=== PATIENT | male | born 1965 | race Caucasian/White ===

== ENCOUNTER → 2024-09-06 14:55 | Outpatient (REF) | payer BC, SELFPAY | LOC: DHVS 14:55 | PROVIDERS: ATTENDING PHYSICIAN Surgery Vascular Surgery | DX: N18.6 End stage renal disease (principal); Z99.2 Dependence on renal dialysis | CPT/HCPCS: 93985 ==

== ENCOUNTER 2024-10-14 06:02 | Day surgery (SDC) | payer BC, SELFPAY ==
[2024-10-14] VITALS (10 sets, daily range): BP systolic 99–170; BP diastolic 45–91
[2024-10-14] MEDS: BACTROBAN NASAL 1 GRAM NASAL (06:54)
[2024-10-14] MEDS: PERIDEX 0.12% ORAL RINSE 15 ML PO (06:54)
[2024-10-14 07:01] LABS: Glucose - Point of Care 91 mg/dl (70-99)
[2024-10-14 07:04] LABS: Hematocrit 33.4 % (39.0-52.0); Hemoglobin 11.4 g/dL (13.0-18.0); Mean Corp Hgb Conc. 34.1 g/dL (33.0-37.0); Mean Corpuscular Volume 90.8 fL (80.0-94.0); Mean Platelet Volume 10.3 fL (7.4-10.4); Platelet Count 132 10^3/uL (130-400); Red Blood Cell Count 3.68 10^6/uL (4.70-6.10); White Blood Cell Count 5.9 10^3/uL (4.8-10.8)
--- NOTE | 2024-10-14 07:06 | HP.FOC2 ---
Focused History & Physical
Chief Complaint
HPI:
Chief Complaint: Planned AV fistula creation status post failed fistula
HPI / Indication for Planned Procedure: 59-year-old male here for planned AV fistula creation by Dr. Alicia. Patient had baseline health. No changes in medications or medical history since last visit to our office. Patient wishes to proceed with
planned procedure today.
Relevant Past Medical History: Other (Hyperlipidemia, hypertension, kidney disease)
Relevant Social History: Negative
Relevant Family History: Positive for (Breast cancer)
Relevant Past Surgical History: Positive for (Fistula creation)
Medication
See Medication form for detailed medications: Yes
Medication List (including Herbals & OTC):
atorvastatin 80 mg tablet (Lipitor) 80 mg PO DAILY 09/10/24
carvedilol 25 mg tablet 25 mg PO BID 09/10/24
cinacalcet 60 mg tablet 60 mg PO DAILY 09/10/24
sevelamer HCl 800 mg tablet 800 mg PO TID 09/10/24
torsemide 100 mg tablet 100 mg PO DAILY 09/10/24
valsartan 320 mg tablet 320 mg PO DAILY 09/10/24
vitamin B complex-vitamin C-folic acid 0.8 mg tablet (Dialyvite 800) 1 tab PO DAILY 09/10/24
Medications Reviewed: Yes
Allergies and Reactions
Patient has Allergies: Yes
Noted Allergies and Reactions:
Allergy/AdvReac Type Severity Reaction Status Date / Time
No Known Allergies Allergy Verified 10/14/24 06:26
Pertinent Physical Exam
All Other Systems: Negative
Head/Neck: Normal
Lungs: Normal
Heart: Normal
Abdomen: Normal
Extremities: Normal
Neurological: Normal
Other: +2 palpable radial pulses right hand
Diagnosis / Assessment
End-stage renal disease
Plan / Procedure
Patient here for planned fistula creation with Dr. Alicia
Anesthesia/Sedation to be done by Anesthesia Provider: Yes
--- NOTE | 2024-10-14 07:06 | W.SUR.PREOP ---
Pre-Operative Surgical Note
-
I have examined this patient prior to the performance of the scheduled procedure.
The patient's condition is unchanged from the time of the current History and
Physical and the patient is able to undergo the scheduled procedure.
[2024-10-14 07:17] LABS: INR 1.06; PT 14.1 Sec (11.4-14.6)
[2024-10-14 07:18] LABS: APTT 28.8 Sec (23.4-35.0)
[2024-10-14 07:42] LABS: Blood Urea Nitrogen 70 mg/dl (9-20); Calcium 7.7 mg/dl (8.4-10.2); Carbon Dioxide 24 mmol/L (22-30); Chloride 101 mmol/L (98-107); Estimated Creatinine Clearance 14 ml/min; Glucose 100 mg/dl (70-99); Potassium 4.4 mmol/L (3.5-5.1); Sodium 139 mmol/L (135-145); eGFR 6.65
--- NOTE | 2024-10-14 09:14 | W.SUR.POST ---
Surgical Immediate Post Op
Note
Pre Op Diagnosis: End-stage renal disease
Post Op Diagnosis: Same
Procedure Performed: Right upper extremity brachiocephalic AV fistula creation
Primary Surgeon: Ravin
Assist: Alexys KOEHLER
Anesthesia: LMA
Estimated Blood Loss: 5cc
Fluids: See anesthesia flowsheet
Drains/Shunts: None
Specimens/Cultures: None
Doppler/Duplex/Angio (Y/N): Y
Complications: None
Operative Findings: Palpable thrill, palpable radial pulse
[2024-10-14 09:49] LABS: Glucose - Point of Care 112 mg/dl (70-99)
--- NOTE | 2024-10-14 11:22 | OR.RPT ---
Operative Report
Operative Report
PROCEDURE DATE: 10/14/2024
Preoperative diagnosis: End-stage renal disease on hemodialysis
Postoperative diagnosis: Same
Procedure: Right upper extremity brachiocephalic arteriovenous fistula creation
Surgeon: Ravin
Group Home Paraprofessional: NIELS Reardon, required for all aspects of procedure including assistance with traction/countertraction, following of suture line, assistance with closure.
Complications: None
Anesthesia: General
Indications for procedure:
History of prior to my meeting him left upper extremity AV access with steal, revision, thrombosis. Now requiring new access placement. Risk/benefit/alternatives all fully discussed. Patient understood all wished to proceed.
Planned right upper extremity AV fistula creation.
Description of procedure:
Patient was identified brought to the operating room placed on the table in supine position. After induction of anesthesia, upper arm cephalic vein was mapped with the ultrasound and noted to be very reasonable and actually large in size. After
the adequate administration of anesthesia and perioperative antibiotics he was prepped and draped in the standard surgical fashion. A standard preoperative timeout was undertaken and everybody was in agreement the plan. A transverse incision was
made in the proximal volar aspect of the forearm just distal to the antecubital fossa. This was carried through skin subcutaneous tissue. The cephalic vein was identified and carefully dissected away from surrounding structures and great care to
avoid any injury to structures. Any branches were ligated between silk ties and divided. The vein was noted to be fairly large. I therefore dissected it beyond a confluence following the main vein which tapered slightly and I felt that that would
be a better point of vein to use for the anastomosis since it was slightly more tapered compared to the larger main cephalic outflow. As such I was able to mobilize a suitable length of cephalic vein. Once I done this I then deepened my
dissection in the medial aspect of the incision site through the fascial layer. The brachial artery was carefully identified and carefully dissected away from surrounding structures take great care to avoid injury to structures. I passed a vessel
loop around it proximally and distally. Next I gave the patient 4000 units of intravenous heparin. I then ligated the cephalic vein distally in my field with a silk tie and a clip. I then transected it. I distended under heparinized saline. It
distended very well. I marked the anterior surface under distention to avoid any kinking or twisting. The vein was very suitably sized but just to be sure I ran a 3 mm dilator through which passed without any difficulty whatsoever. Next I
tightened my double looped Vesseloops on the artery proximally and distally. I then made an arteriotomy with 11 blade extended using a Bronson scissor. I made sure to make a relatively small arteriotomy in order to prevent steal. I spatulated the
cephalic vein where it slightly tapered, and sewed an end to side anastomosis using a running 6-0 Prolene suture. Prior to completing and tying down my suture line I backbled and forebled the [place] artery. Next I released my bulldog clamp on the
vein and then released my Vesseloops on the artery. There was an excellent thrill in the fistula. There was palpable radial pulse at the wrist, confirmed with Doppler. At this point I was very satisfied. I irrigated. I achieved and confirmed
full hemostasis. We then closed in layers using 3-0 Vicryl deep dermal layer followed by 4-0 Monocryl subcuticular stitch. Dermabond was applied. The patient tolerated the procedure well.
== END 2024-10-14 11:28 | disposition home or self-care (01) ==
LOC: CATH 06:02
PROVIDERS: ATTENDING PHYSICIAN Surgery Vascular Surgery; FAMILY PHYSICIAN Nurse Practitioner Family; OTHER PHYSICIAN Internal Medicine Cardiovascular Disease
DX: I12.0 Hypertensive chronic kidney disease with stage 5 chronic kidney disease or end stage renal disease (principal); N18.6 End stage renal disease; Z99.2 Dependence on renal dialysis; E78.49 Other hyperlipidemia; I45.10 Unspecified right bundle-branch block; Z80.3 Family history of malignant neoplasm of breast
CPT/HCPCS: 36821; 80048; 82962; 85027; 85610; 85730; 86850; 86900; 86901; 93005

== ENCOUNTER → 2024-11-26 10:12 | Outpatient (REF) | payer BC, SELFPAY | LOC: RAD 10:12 | PROVIDERS: ATTENDING PHYSICIAN Registered Nurse; FAMILY PHYSICIAN Nurse Practitioner Family | DX: L98.8 Other specified disorders of the skin and subcutaneous tissue (principal) | CPT/HCPCS: 93990 ==

== ENCOUNTER 2025-02-17 06:41 | Inpatient (IN) | payer BC, SELFPAY ==
[2025-02-17] VITALS (27 sets, daily range): BP systolic 96–138; BP diastolic 55–98; BMI 42.5; BMI 41.3
[2025-02-17 05:06] LABS: % Basophils 0.7 % (0-2); % Eosinophils 4.5 % (0-6); % Immature Granulocytes 0.1 % (0-0.5); % Lymphocytes 19.9 % (20.5-51.1); % Monocytes 10.9 % (1.7-9.3); % Neutrophils 63.9 % (42.2-75.2); Absolute Basophils 0.1 10^3/uL (0-0.2); Absolute Eosinophils 0.3 10^3/uL (0-0.7); Absolute Lymphocytes 1.5 10^3/uL (1.2-3.4); Absolute Monocytes 0.8 10^3/uL (0.1-0.6); Absolute Neutrophils 4.8 10^3/uL (1.4-6.5); Hematocrit 28.8 % (39.0-52.0); Hemoglobin 9.9 g/dL (13.0-18.0); Mean Corp Hgb Conc. 34.4 g/dL (33.0-37.0); Mean Corpuscular Hgb 31.1 pg (27.0-31.0); Mean Corpuscular Volume 90.6 fL (80.0-94.0); Mean Platelet Volume 10.1 fL (7.4-10.4); Nucleated Red Blood Cells % 0 % (-); Platelet Count 145 10^3/uL (130-400); Red Blood Cell Count 3.18 10^6/uL (4.70-6.10); Red Cell Dist. Width 13.4 % (11.5-14.5); White Blood Cell Count 7.5 10^3/uL (4.8-10.8)
--- NOTE | 2025-02-17 05:06 | ED.GENMED ---
History of Present Illness
General
Chief Complaint: Breathing Problem
Source: patient and family
Exam Limitations: none
Time Seen by Provider: 02/17/25 04:10
History of Present Illness
History of Present Illness:
59-year-old male brought in with shortness of breath. Patient was diagnosed with pneumonia about 2 weeks ago via CAT scan by his primary care provider. Tonight he reports increased work of breathing. Denies fever, chills, nausea or vomiting.
Patient has dialysis at [facility] in [facility] every Monday and Monday. He is due for dialysis this morning. He states that he is concerned about going down to dialysis with his current shortness of breath. Patient is diet-controlled
diabetes. He has 2 fistulas 1 in the left and 1 in the right arm. The left fistula has failed and not used.
Vital signs are stable. Patient hypoxic on room air
Nursing note reviewed. I agree with nursing documentation up to this point in time.
Home Meds and allergies reviewed.
NUMBER AND COMPLEXITY OF PROBLEMS ADDRESSED AT THE ENCOUNTER
� Chronic conditions affecting care:
� Acute Exacerbation and/or Progression of Chronic Illness:
� Differential Diagnosis includes: CHF exacerbation, WA, dependent edema
AMOUNT AND/OR COMPLEXITY OF DATA TO BE REVIEWED AND ANALYZED
I performed an independent evaluation of the following and my interpretation is:
EKG: Sinus rhythm rate of 75 first-degree AV block with UT interval 246 ms. Incomplete right bundle branch block present. LVH present. When compared with previous EKG dated October 14, 2024, similar morphology noted.
Pulse Ox: Hypoxic on room air. Oxygen saturation improved and is not him hypoxic on 2 L nasal cannula
Shop Repairer: Sinus Rhythm
CT:
X-rays: Pulmonary vascular congestion
Ultrasound:
Laboratory Studies: Elevated troponin, and proBNP
Other:
Review of other/old records: AV fistula placement 10/14/2024
Clinical information was obtained by an independent historian:
Prescriptions/Medications Considered but not given:
Further testing considered but not performed:
RISK OF COMPLICATIONS AND/OR MORBIDITY OR MORTALITY OF PATIENT MANAGEMENT
Social determinants of health affecting care: Good Social Support
Discussion with other providers:
Escalation of care including admission/observation vs risk of discharge considered: After being observed in the emergency department, patient is not stable for discharge and will be admitted to the hospitalist service
nephrology aware.
Update:
Review of Systems
Review of Systems
Allergies reviewed?: Yes
All Other Systems: ROS reviewed and negative except as documented in HPI and ROS
Constitutional: Reports no symptoms
EENT: Reports no symptoms
Respiratory: Reports cough and trouble breathing
Cardiac: Reports no symptoms
ABD/GI: Reports no symptoms
: Reports no symptoms
Musculoskeletal: Reports no symptoms
Skin: Reports no symptoms
Neurological: Reports no symptoms
Endocrine: Reports no symptoms
Hematologic/Lymphatic: Reports no symptoms
Psychiatric: Reports no symptoms
Phy Exam
General Physical Exam
General Presentation: well appearing and mild distress
General age: appears older than age
General Skin: warm and dry
General Habitus: normal
General Mental: alert
General Hydration: appears well hydrated
ENT Exam
ENT Exam: EOMI, pharynx normal, neck supple and normocephalic
Eye Exam
Eye Exam: PERRL, cornea clear and conjunctiva normal
Cardiovascular Exam
Cardiovascular Exam: regular rate/rhythm, no murmur, normal peripheral pulses and systolic murmur
Systolic Murmur: 4/6 (Patient states that this murmur is fairly new. It was detected by another physician recently)
Pulmonary Exam
Pulmonary Exam: respiratory distress
Cough: coarse cough
Breath Sounds: Rhonchi: generalized
Gastrointestinal Exam
Gastrointestinal Exam: normal bowel sounds, non tender, soft, no organomegaly, no pulsatile mass and non distended
Neurological Exam
Neurological Exam: alert, oriented x3, no motor deficits and speech normal
Musculoskeletal Exam
Musculoskeletal Exam: edema and neuro vasc intact
Skin Exam
Skin Exam: other (Bilateral AV fistula)
Psychiatric Exam
Psychiatric Exam: normal mood/affect
Scores
Heart Failure Risk
Heart Failure Risk Score: Yes
History of Stroke or TIA: Yes
History of intubation for respiratory distress: No
Heart rate on ED arrival >/= 110: No
SaO2 <90% on arrival on room air: Yes
HR >/=110 during 3min walk test (or too ill to perform test): Yes
ECG has acute ischemic changes: No
Urea >/=12mmol/L (BUN 33.6mg/dL): Yes
Serum CO2>/=35mmol/L: No
Troponin I or T elevated to WA Level (0.4mg/dL): No
NT-proBNP >/=5,000ng/L (5,000pg/ml): Yes
HF Risk Score: 6
Admission Status: VERY HIGH RISK 55.3% Consider admission to hospital
Course
Orders/Labs/Results
Orders:
Orders
02/17/25 03:31
Chest [CR Chest - 2 Views ] Urgent
Comment:
Reason For Exam: SOB
02/17/25 04:44
Complete Blood Count/With Diff Urgent
Comprehensive Metabolic Panel Urgent
02/17/25 04:55
EKG [Electrocardiogram (*1)] Urgent
Reason for Study: Shortness of Breath
EKG- Treatment ONCE
02/17/25 04:56
NT-proBNP Urgent
Troponin I Urgent
02/17/25 05:43
Furosemide [Lasix] 80 mg IV NOW STA
Abnormal Lab Results
02/17/25 02/17/25
04:44 04:56
RBC 3.18 L 10^6/uL
(4.70-6.10)
Hgb 9.9 L g/dL
(13.0-18.0)
Hct 28.8 L %
(39.0-52.0)
MCH 31.1 H pg
(27.0-31.0)
Absolute Monos (auto) 0.8 H 10^3/uL
(0.1-0.6)
Lymphocytes % 19.9 L %
(20.5-51.1)
Monocytes % 10.9 H %
(1.7-9.3)
BUN 53 H mg/dl
(9-20)
Creatinine 9.9 H* mg/dL
(0.7-1.3)
Glucose 117 H mg/dl
(70-99)
Troponin I 0.184 H* ng/ml
02/17/25 04:44
02/17/25 04:44
Vital Signs
Initial and Last Documented VS:
Initial Vital Signs
Temp Pulse Resp BP
97.6 F 78 22 138/98
02/17/25 03:24 02/17/25 03:24 02/17/25 03:24 02/17/25 03:24
Last Documented Vital Signs
Temp Pulse Resp BP Pulse Ox
97.6 F 75 27 134/77 91
02/17/25 03:24 02/17/25 05:30 02/17/25 05:30 02/17/25 05:10 02/17/25 05:30
*Radiology
Radiology exam reviewed: preliminary read by ED provider (Pulmonary vascular congestion consistent with CHF)
*Pulse Oximetry
Patient hypoxic: no
*Critical Care Note
Total Time (30-74mins, 75-104mins- exclusive of procedures): 33 (Critical care statement: A total of 33 minutes of critical care time was provided for this patient. This time is separate from time utilized to perform the aforementioned documented
procedures. Aggregate critical care time includes only time during which I was engaged in work directl)
ED Attending Note
-
Portions of this chart may have been created with voice recognition software.� Occasional wrong word or��sound alike� substitutions may have occurred due to the inherent limitations of voice recognition software.
Discharge Plan
Departure
Patient Disposition: Admit
Date of Disposition: 02/17/25
Time of Disposition: 05:49
Admit to: IVU
Presentation/result/management discussed w/ accepting MD/DO: Hospitalist
Condition: Fair
Discharge Problem:
Acute exacerbation of CHF (congestive heart failure), Renal failure, Increasing shortness of breath
Prescriptions:
No Action
atorvastatin [Lipitor] 80 mg Tablet
80 mg PO DAILY
carvedilol 25 mg Tablet
25 mg PO BID
sevelamer HCl 800 mg Tablet
800 mg PO TID
torsemide 100 mg Tablet
100 mg PO DAILY
valsartan 320 mg Tablet
320 mg PO DAILY
cinacalcet 60 mg Tablet
60 mg PO DAILY
Dialyvite 800 0.8 mg Tablet
1 tab PO DAILY
Referrals:
Homar Mann MD [Family Provider] -
Interventions
Interventions:
*Risk Screen - Suicide Last Done: 02/17/25 03:24
*General Assessment Last Done: 02/17/25 04:43
*Neglect/Abuse Screening Last Done: 02/17/25 03:24
*ED- Fall Risk Assessment Last Done: 02/17/25 04:43
*ED COVID-19 Vaccine History Last Done: 02/17/25 04:43
ED- Cardiac Assessment Last Done: 02/17/25 05:22
ED- Pulmonary Assessment Last Done: 02/17/25 05:22
Discharge Date and Time
Print Language: THAI
[2025-02-17 05:25] LABS: ALT (SGPT) 15 U/L (0-50); AST (SGOT) 24 U/L (17-59); Alkaline Phosphatase 57 U/L (38-126); Blood Urea Nitrogen 53 mg/dl (9-20); Calcium 9.8 mg/dl (8.4-10.2); Carbon Dioxide 24 mmol/L (22-30); Chloride 102 mmol/L (98-107); Estimated Creatinine Clearance 12 ml/min; Glucose 117 mg/dl (70-99); Potassium 3.9 mmol/L (3.5-5.1); Sodium 138 mmol/L (135-145); Total Protein 7.4 g/dl (6.3-8.2); eGFR 5.54
[2025-02-17 05:38] LABS: NT-proBNP > 27000 pg/ml; Troponin I 0.184 ng/ml
[2025-02-17] MEDS: LASIX 80 MG IV (06:08)
--- NOTE | 2025-02-17 06:08 | HPS.HSE ---
Family Physician
-
Family Physician: Homar Mann MD
Chief Complaint
-
Shortness of breath
History of Present Illness
59 y.o male with history of end-stage renal disease on hemodialysis Monday, no history of congestive heart failure in 2017, hypertension, hyperlipidemia presenting to the emergency department with approximately 1 day of shortness of
breath.
Patient reported that about 2 weeks ago was diagnosed with pneumonia. At a time had a cough and some shortness of breath. He completed a course of antibiotics. He still has a cough which is now nonproductive. He denies any fevers or chills. He
reported that he did feel better until today when he had severe shortness of breath and dyspnea on exertion. He missed his dialysis session on Monday. His last dialysis session was Monday 5 days ago. He usually has about 2.4 kg removed with
the session. Recently has right upper extremity AV fistula placed after failure of the right wrist left. He has been using the fistula for about a month. He still has a dialysis permacath in the right IJ.
Patient denies having any chest pain. He denies palpitations.
In the emergency department he was afebrile, he was satting 88% on room air and 92 to 95% on 2 L. Blood pressure was 134/77, pulse rate was 75. ECG shows normal sinus rhythm with 4 degree AV block and incomplete right bundle no acute to ST
changes. Unchanged from prior. Chest x-ray shows bilateral interstitial infiltrates consistent with pulmonary edema. CBC was unremarkable with a white count of 7.5, hemoglobin of 9 and a plate count 145. Electrolytes were stable with a potassium
of 3.9 and a bicarb of 24. Troponin was 0.1 and BNP was greater than 27,000.
Medical History
Past Medical History
Past Medical History: Reports HTN, Hypercholesterolemia and Renal Failure (On hemodialysis Monday)
Past Surgical History: Reports Other (AV fistula placement)
Social History
Tobacco: Non-smoker
Alcohol: None
Drug: None
Family History
Family History: Not pertinent
Allergies / Home Medications
Allergies reflects when Allergies were last updated in [facility].
Home Medications with original date entered in [facility]
Allergy/Medication List:
Allergies
Allergy/AdvReac Type Severity Reaction Status Date / Time
No Known Allergies Allergy Verified 02/17/25 03:29
Home Medications
atorvastatin 80 mg tablet (Lipitor) 80 mg PO DAILY 09/10/24
carvedilol 25 mg tablet 25 mg PO BID 09/10/24
cinacalcet 60 mg tablet 60 mg PO DAILY 09/10/24
sevelamer HCl 800 mg tablet 800 mg PO TID 09/10/24
torsemide 100 mg tablet 100 mg PO DAILY 09/10/24
valsartan 320 mg tablet 320 mg PO DAILY 09/10/24
vitamin B complex-vitamin C-folic acid 0.8 mg tablet (Dialyvite 800) 1 tab PO DAILY 09/10/24
Review of Systems
-
History Source: Patient
Constitutional: Reports No Symptoms
EENT: Reports No Symptoms
Respiratory: Reports Cough and Trouble Breathing
Cardiac: Reports No Symptoms
Abdomen/GI: Reports No Symptoms
: Reports No Symptoms
Musculoskeletal: Reports No Symptoms
Skin: Reports No Symptoms
Neurological: Reports No Symptoms
Endocrine: Reports No Symptoms
Hematologic/Lymphatic: Reports No Symptoms
Psych: Reports No Symptoms
Physical Exam
Vital Signs
Vital Signs
Temp Pulse Resp BP Pulse Ox
97.6 F 74 24 138/93 93
02/17/25 03:24 02/17/25 06:00 02/17/25 06:00 02/17/25 06:00 02/17/25 06:00
Physical Exam
General: Well Developed, Well Nourished, No Apparent Distress and Comfortable
HEENT: NormoCephalic, Anicteric, Moist mucous membranes, Atraumatic, PERRLA and Oxygen
Respiratory: Crackles, Non Labored Respirations and Decreased Breath Sounds
Cardiac: S1/S2 and Regular Rhythm
Breast: Deferred by me
GI: Soft, Non Tender and Normal Bowel Sounds
Rectal: Deferred by Provider
Genito-urinary: Deferred by me
Musculoskeletal: No Clubbing, No Cyanosis, Edema, Right Upper Extremity, Edema, Left Lower Extremity (trace) and Edema, Right Lower Extremity (trace)
Skin: Warm
Neuro: AO x 3 and Nonfocal/grossly intact
Hematologic/Lymphatic: No Lymphadenopathy
Psych: Calm
Laboratory Results
-
02/17/25 04:44
02/17/25 04:44
Laboratory Results
Total Bilirubin 1.0 mg/dl (0.2-1.3) 02/17/25 04:44
AST 24 U/L (17-59) 02/17/25 04:44
ALT 15 U/L (0-50) 02/17/25 04:44
Alkaline Phosphatase 57 U/L (38-126) 02/17/25 04:44
Troponin I 0.184 ng/ml H* 02/17/25 04:56
Data Reviewed
-
Diagnostic Radiology: Image Personally Visualized and interpreted
Medical Tests (Nuc Med, Echo, EKG etc): Image Personally Visualized and interpreted
Lab Data: Labs Reviewed by me
Old Records: Reviewed
Impression/Plan
-
IMPRESSION:
59 y.o w/ h/o CHF, HTN, ESRD on HD M/W/F presenting with SOB and hypoxia. Missed HD on monday. Xray with pulmonary edema. He has non-pitting edema in [place] and RUE. BNP > 67779. Trop also elevated to 0.1. No chest pain. No ischemia on ECG.
Suspect CHF exacerbation secondary to volume overload. He still makes urine on torsemide.
PLAN:
CHF Exacerbation - Suspect mostly secondary to volume overload from missed dialysis and large interdialytic weight gain. Trop elevated but can be seen with severe volume O/D. No CP or ischemia on ECG. He has no signs of acute infection.
- admit to telemetry for now
- oxygenating well on 2 L with minimal increase in wob
- BP is normal, will hold off nitroglycerin for now
- attempt diuresis with lasix 80mg iv
- urgent hemodialysis for u/f -> nephrology notified from ED
- fluid and salt restrictions
- echo
- aspirin x 1, continue carvedilol, statin
- cardiology consultation
Trop elevation - suspect from CHF exacerbation and esrd but cannot rule out nstemi. No chest pain. No h/o CAD.
- assa 324 x 1
- trend troponins
- diuresis and dialysis as above
- echo
- ntg prn cp
- cardiology consult
ESRD - Vol O/D from missed dialysis suspectec. K 3.9. bicarb 24
- nephrology consult for HD, has permcath in R IJ and a functional RUE AVF with good thrill and bruit
- has RUE swelling since fistula placement, outpatient u/s negative, plan to remove permcath by outpatient HD to help relieve swelling
- continue sevalamer cincalcet and dialyvite
- continue valsartan and torsemide
DVT PPX - heparin sq
Code status - Full code
[2025-02-17] MEDS: LOW STRENGTH ASPIRIN 324 MG PO (06:41)
[2025-02-17] MEDS: RENVELA 800 MG PO ×3 (08:19→17:30)
[2025-02-17] MEDS: HEPARIN 5000 UNITS SC ×3 (08:19→23:36)
[2025-02-17] MEDS: LIPITOR 80 MG PO (08:19)
[2025-02-17] MEDS: DIOVAN 320 MG PO (08:19)
[2025-02-17] MEDS: COREG 25 MG PO ×2 (08:19→19:38)
[2025-02-17] MEDS: NEPHROCAP 1 CAPSULE PO (08:20)
[2025-02-17] MEDS: SENSIPAR 60 MG PO (08:20)
--- NOTE | 2025-02-17 09:14 | CON.CAR ---
Addendum entered and electronically signed by Moses Mckinney MD 02/17/25 10:14:
59 yo male with chronic HFPEF, ESRD on HD is admitted with SOB, edema. He missed HD on Monday. No chest pain. Exam with RRR, no murmurs, 1+ LE edema. TnI 0.184. Cr 9.9. Tele: SR. EKG: SR, 1st degree AVB.
Volume overload in setting of acute HFPEF and missed HD. Resume HD/UF.
Elevated troponin. Suspect acute non-ischemic myocardial injury in setting of HF, renal failure. Check echo.
Original Note:
Consultation
Consultation Request
Date/Time Consultation Requested: 02/17/2025 07:20
Date/Time Consultation Performed: 02/17/2025 08:45
Requesting Provider: Dr. Moe
Performing Provider: RODO Zheng for Dr. Mckinney
Reason for Consultation: Heart failure exacerbation
Medical History
-
Chief Complaint: Shortness of breath
History of Present Illness:
Michel Kendrick is a 59-year-old male (known to Dr. Rios, his primary material analyst), with ESRD on HD, heart failure, hypertension, dyslipidemia, NIDDM, and obesity who presented to the emergency department with a chief complaint of shortness of
breath. He normally receives hemodialysis on Monday/Monday/Monday via right PermCath. He had an AV fistula placed in his right upper extremity does have large but he has had swelling so the fistula is not currently being used. He missed
hemodialysis on Monday. He presented with shortness of breath. This has been ongoing for approximately 1 day. Approximately 2 weeks ago he had a CT scan which demonstrated pneumonia. At that time he had a cough and some shortness of breath. He
completed prescribed antibiotics. Over the past day he has a moist nonproductive cough. He endorses severe shortness of breath that worsens with exertion. And improves with rest. He believes his dry weight to be about 140 kg. He was found to
have an abnormal troponin, proBNP greater than 27,000, and a chest x-ray with an increase in his pulmonary vasculature. At the time of this exam he denies chest pain. His right arm edema is chronic and unchanged.
Past Medical History
Past Medical History: CHF, HTN, Hypercholesterolemia, NIDDM and Renal Failure (ESRD on HD)
Social History
Tobacco: Non-Smoker
Alcohol: None
Personal:
Living: With Family
Family History
Family History: Reviewed & Not Pertinent
Allergies / Home Medications
Allergy/AdvReac Type Severity Reaction Status Date / Time
No Known Allergies Allergy Verified 02/17/25 03:29
�Medication �Instructions �Recorded �Confirmed �Type
atorvastatin 80 mg tablet (Lipitor) 80 mg PO DAILY 09/10/24 10/14/24 History
carvedilol 25 mg tablet 25 mg PO BID 09/10/24 10/14/24 History
cinacalcet 60 mg tablet 60 mg PO DAILY 09/10/24 10/14/24 History
sevelamer HCl 800 mg tablet 800 mg PO TID 09/10/24 10/14/24 History
torsemide 100 mg tablet 100 mg PO DAILY 09/10/24 10/14/24 History
valsartan 320 mg tablet 320 mg PO DAILY 09/10/24 10/14/24 History
vitamin B complex-vitamin C-folic 1 tab PO DAILY 09/10/24 10/14/24 History
acid 0.8 mg tablet (Dialyvite 800)
Review of Systems
-
History Source: Patient
All other systems: Negative unless noted
Constitutional: Weight Gain and Fatigue
EENT: No Symptoms
Respiratory: Cough and Trouble Breathing
Cardiac: No Symptoms
Abdomen/GI: No Symptoms
: No Symptoms
Musculoskeletal: Edema
Skin: No Symptoms
Neurological: No Symptoms
Endocrine: No Symptoms
Hematologic/Lymphatic: No Symptoms
Physical Exam
Vital Signs
Temp Pulse Resp BP Pulse Ox
97.6 F 79 27 134/84 94
02/17/25 03:24 02/17/25 08:19 02/17/25 07:15 02/17/25 08:19 02/17/25 07:15
Lab Results
02/17/25 04:44
02/17/25 04:44
Troponin I 0.184 ng/ml H* 02/17/25 04:56
Ajq-X-Uzgkfcfhfnv Pept > 95215 pg/ml 02/17/25 04:56
Physical Exam
General: Well Developed, Well Nourished, No Apparent Distress and Comfortable
HEENT: Normocephalic, Anicteric and Moist Mucous Membranes
Respiratory: Non Labored Respirations and Other (coarse)
Cardiac: S1/S2, Regular Rhythm and Peripheral Edema
Breast: Deferred by me
GI: Soft, Non Tender, Non Distended and Normal Bowel Sounds
Rectal: Deferred by Provider
Genito-urinary: No Costovertebral Tender
Musculoskeletal: No Clubbing, No Cyanosis and Edema (B/L LE and RUE)
Skin: Warm and Dry
Neuro: AO x 3
Hematologic/Lymphatic: No Lymphadenopathy
Psych: Calm
Impression / Plan
-
I/P: 59M with ESRD on HD, heart failure, hypertension, dyslipidemia, NIDDM, and obesity who presented to the emergency department with a chief complaint of shortness of breath.
Outpatient material analyst: Dr. Rios
Shortness of breath, in the setting of volume overload, plan as below
HFpEF, acute on chronic
-Volume overloaded on exam
-Volume management with hemodialysis
-Trend daily weight, I/O with HD
-HF education
-Echocardiogram today
Abnormal troponin, nonischemic myocardial injury in the setting of acute heart failure and CKD
-Chest pain-free, EKG stable
-Trend to peak, Troponin I 0.184 x 2
ESRD on HD
-Last session of hemodialysis 02/12/2025, he missed 02/15/2025
-Nephrology following
AV fistula, right upper extremity, chronic swelling with some discoloration in his fingers, he reports this is unchanged
Hypertension, managed by nephrology
Incomplete right bundle branch block, present on prior EKG (10/14/2024)
NIDDM, Hgba1c pending, per primary
Dyslipidemia, on atorvastatin
Data Reviewed
-
EKG: Report Reviewed by me
Labs: Labs Reviewed by me
Old Records: Reviewed
[2025-02-17 09:26] LABS: Troponin I 0.184 ng/ml
--- NOTE | 2025-02-17 10:16 | W.CON.NEPH ---
Consultation
-
Date/Time Consultation Requested: 02/17/25722
Date/Time Consultation Performed: 02/17/25914
Requesting Provider: Leda Moe MD
Performing Provider: Loli Mcmullen
Reason for Consultation: ESRD
Medical History
-
Chief Complaint: SOB
History of Present Illness:
59 y.o male with history of end-stage renal disease on hemodialysis Monday, [facility] since 1.5yr, still residual urine out put on Torsemide, history of congestive heart failure in 2017, hypertension on Valsartan, coreg,
hyperlipidemia on high dose Atorvastatin, Hyperphosphatemia on Sevelamer, SHPTH on Sensipar presenting to the emergency department on 02/17 with approximately 1 day of shortness of breath.
Patient reported that about 2 weeks ago was diagnosed with pneumonia at [facility]. At a time had a cough and some shortness of breath. He completed a course of antibiotics. He still has a cough which is now nonproductive. He is very compliant wit
salt restriction or fluid restriction. He denies any fevers or chills. He reported that he did feel better until day ago when he had severe shortness of breath and dyspnea on exertion. He missed his dialysis session on Monday. His last dialysis
session was Monday 5 days ago. He usually has about 2.4 kg removed with the session, can not tolerate 4kg UF, [id number]. Recently has right upper extremity AV fistula placed after failure of the right wrist left. He has been using the fistula
for about a month. He still has a dialysis permacath in the right IJ and plan of removing soon with concern of arm edema.
Patient denies having any chest pain. He denies palpitations.
In the emergency department he was satting 88% on room air and 92 to 95% on 2 L. Chest x-ray shows bilateral interstitial infiltrates consistent with pulmonary edema. Troponin was 0.1 and BNP was greater than 27,000. Nephrology asked for HD needs.
Past Medical History
end-stage renal disease on hemodialysis Monday, [facility] since 1.5yr,
history of congestive heart failure in 2017,
hypertension
hyperlipidemia
Hyperphosphatemia
SHPTH
Past Surgical History: Other (AVF)
Social History
Tobacco: Non-Smoker
Alcohol: None
Drug: None
Personal:
Living: With Family
Family History
Family History: Not Pertinent
Allergies / Home Medications
Allergy/AdvReac Type Severity Reaction Status Date / Time
No Known Allergies Allergy Verified 02/17/25 03:29
�Medication �Instructions �Recorded �Confirmed �Type
atorvastatin 80 mg tablet (Lipitor) 80 mg PO DAILY 09/10/24 02/17/25 History
carvedilol 25 mg tablet 25 mg PO BID 09/10/24 02/17/25 History
cinacalcet 60 mg tablet 60 mg PO DAILY 09/10/24 02/17/25 History
sevelamer HCl 800 mg tablet 800 mg PO MEALS 09/10/24 02/17/25 History
torsemide 100 mg tablet 100 mg PO DAILY 09/10/24 02/17/25 History
valsartan 320 mg tablet 320 mg PO DAILY 09/10/24 02/17/25 History
vitamin B complex-vitamin C-folic 1 tab PO DAILY 09/10/24 02/17/25 History
acid 0.8 mg tablet (Dialyvite 800)
Review of Systems
-
All other systems: Negative unless noted
Physical Exam
Vital Signs
Vital Signs
Temp Pulse Resp BP Pulse Ox
97.6 F 79 27 134/84 94
02/17/25 03:24 02/17/25 08:19 02/17/25 07:15 02/17/25 08:19 02/17/25 07:15
Lab Results
WBC 7.5 10^3/uL (4.8-10.8) 02/17/25 04:44
RBC 3.18 10^6/uL (4.70-6.10) L 02/17/25 04:44
Hgb 9.9 g/dL (13.0-18.0) L 02/17/25 04:44
Hct 28.8 % (39.0-52.0) L 02/17/25 04:44
Plt Count 145 10^3/uL (130-400) 02/17/25 04:44
Sodium 138 mmol/L (135-145) 02/17/25 04:44
Potassium 3.9 mmol/L (3.5-5.1) 02/17/25 04:44
Chloride 102 mmol/L (98-107) 02/17/25 04:44
Carbon Dioxide 24 mmol/L (22-30) 02/17/25 04:44
BUN 53 mg/dl (9-20) H 02/17/25 04:44
Creatinine 9.9 mg/dL (0.7-1.3) H* 02/17/25 04:44
eGFR 5.54 02/17/25 04:44
Glucose 117 mg/dl (70-99) H 02/17/25 04:44
Calcium 9.8 mg/dl (8.4-10.2) 02/17/25 04:44
Cmn-B-Lfevlebecyi Pept > 50166 pg/ml 02/17/25 04:56
Albumin 4.0 g/dl (3.5-5.0) 02/17/25 04:44
Physical Exam
General: Awake, Alert, Oriented, AOx3, No Distress and Nontoxic
HEENT: EOMI, Anicteric, Facial Symmetry and Neck Supple
Respiratory: Crackels, Normal Excursion and Nonlabored Respirations
Cardiac: S1/S2, Regular Rate/Rhythm and Murmur
Breast: Deferred by me
Abdomen: Soft, Nontender and Nondistended
Musculoskeletal: No Cyanosis and Edema (1+)
Skin: No Rash and Warm
Neuro: Nonfocal/Grossly Intact
Psych: Mood/afflect pleasant, Insight/judgement good and Appropriate
Vascular Access: AVF (right UE edema 2+)
Data Reviewed
-
Radiology: Report Reviewed by me and Discussed with Patient
Labs: Labs Reviewed by me and Discussed with Patient
Assessment/Plan
-
IMP:
CHF Exacerbation from missed dialysis
Trop elevation
end-stage renal disease on hemodialysis Monday, [facility] since 1.5yr
Anemia ofCKD
hypertension
hyperlipidemia
Hyperphosphatemia
SHPTH
Plan:
A/w Pulm edema, missed HD
plan HD today, UF as tolerates
may need extra UF tomorrow based on symp
cont diuretics, check echo, reports heart murmur new in last few months, cards follows
BP stable
Will try access AVF
resume phos binder and Cinacalcet
need better compliance with HD and diet
d/w pt in detail
[2025-02-17 11:56] LABS: Glycohemoglobin (HgbA1c) 5.4 % (4.0-5.6)
[2025-02-17] MEDS: HEPARIN 500 UNITS IV ×2 (12:10→13:10)
[2025-02-17] MEDS: MANNITOL 25% 12.5 GRAMS IV ×2 (13:00→14:36)
[2025-02-17] MEDS: FLEXBUMIN 25% FOR HEMODIALYSIS 12.5 GRAMS IV ×2 (13:20→14:36)
--- NOTE | 2025-02-17 13:44 | W.PN.NEPH.HD ---
Assessment
-
pt seen during HD
vitals stable
He did not want to access AVF, CVC functioning well
UF as he tolerates, challenge EDW
Progress Note - Hemodialysis
-
Date of Service: February 17, 2025
Duration: 30 minutes and 3 hours
Potassium Bath: 3
Calcium Bath: 2.5
Opti-Dialyzer: 160
Ultrafiltration: Other (3.5kg)
Blood Flow: 350
Dialysate Flow: 600
Heparin: yesx2
EPO: 3000
[2025-02-17] MEDS: DEMADEX PO (14:18)
--- NOTE | 2025-02-17 14:18 | CM ---
CM met with pt bedside
Pt resides with his spouse in a 2SH with 1 small threshold step
Full flight to second floor
Indep with ADLs, denies use of DMEs, drives+
Pt attends outpt HD at [facility] MWF [id number], he drives self
Pt denies financial insecurities
PCP- Homar Mann
[facility]- [facility], Sat closes 3pm, closed Sun
Discharge Disposition- anticipate home no needs
[facility] (p) [phone] (f) [phone]
[2025-02-17] MEDS: RETACRIT 3000 UNITS IV (14:35)
--- NOTE | 2025-02-17 16:10 | W.PN.HOSP.TC ---
Today's Communication/Plan
-
Await input from nephro on potential dialysis tomorrow/timing of dc
Echo/Cardio consult pending
Assessment / Plan
Assessment / Plan
59 y.o w/ h/o CHF, HTN, ESRD on HD M/W/F presenting with SOB and hypoxia. Missed HD on monday. Xray with pulmonary edema. He has non-pitting edema in kanwal le and RUE. BNP > 08174. Trop also elevated to 0.1. No chest pain. No ischemia on ECG.
Suspect CHF exacerbation secondary to volume overload. He still makes urine on torsemide.
PLAN:
CHF Exacerbation - Suspect mostly secondary to volume overload from missed dialysis and large interdialytic weight gain. Trop elevated but can be seen with severe volume O/D. No CP or ischemia on ECG. He has no signs of acute infection.
- admit to telemetry for now
- oxygenating well on 2 L with minimal increase in wob
- BP is normal, will hold off nitroglycerin for now
- attempted diuresis with lasix 80mg iv
- urgent hemodialysis for u/f -> nephrology notified from ED
- fluid and salt restrictions
- echo
- aspirin x 1, continue carvedilol, statin
- cardiology consultation
Trop elevation - suspect from CHF exacerbation and esrd but cannot rule out nstemi. No chest pain. No h/o CAD.
- assa 324 x 1
- trend troponins
- diuresis and dialysis as above
- echo
- ntg prn cp
- cardiology consult
ESRD - Vol O/D from missed dialysis suspectec. K 3.9. bicarb 24
- nephrology consult for HD, has permcath in R IJ and a functional RUE AVF with good thrill and bruit
- has RUE swelling since fistula placement, outpatient u/s negative, plan to remove permcath by outpatient HD to help relieve swelling
- continue sevalamer cincalcet and dialyvite
- continue valsartan and torsemide
DVT PPX - heparin sq
Code status - Full code
Anticipated Discharge: 24 - 48 hours
Subjective/Interval History
-
Date of Service: February 17, 2025
Awake, alert, conversant
Objective Data
-
Labs:
Laboratory Results
02/17/25
04:44
WBC 7.5
Hgb 9.9 L
Hct 28.8 L
Plt Count 145
Sodium 138
Potassium 3.9
Chloride 102
Carbon Dioxide 24
BUN 53 H
Creatinine 9.9 H*
Glucose 117 H
Calcium 9.8
Total Bilirubin 1.0
AST 24
ALT 15
Alkaline Phosphatase 57
Vital Signs:
Vital Signs
Temp Pulse Resp BP Pulse Ox
97.4 F 67 23 109/67 95
02/17/25 11:24 02/17/25 11:15 02/17/25 11:15 02/17/25 11:00 02/17/25 11:25
Review of Systems
-
History Source: Patient and Coordinated Provider
Constitutional: Reports No Symptoms; Denies Fever
EENT: Reports No Symptoms Reported
Respiratory: Reports No Symptoms
Cardiac: Reports No Symptoms
Abdomen/GI: Reports No Symptoms
Genitourinary: Reports No Symptoms
Physical Exam
-
General: Well Developed, Well Nourished and No Apparent Distress
HEENT: Normocephalic, Atraumatic and Moist Mucous Membranes
Respiratory: Clear to Auscultation; Negative Wheezes, Rales or Rhonchi
Cardiac: Regular Rhythm and S1/S2
GI: Soft, Nontender and Nondistended
Musculoskeletal: No Clubbing and No Cyanosis; Negative No Edema (1-2+)
Neuro: Awake, Alert and Oriented
[2025-02-17 18:17] LABS: Troponin I 0.161 ng/ml
[2025-02-18] VITALS (8 sets, daily range): BP systolic 92–128; BP diastolic 58–83; BMI 41.2
[2025-02-18] MEDS: RENVELA 800 MG PO ×3 (08:15→17:11)
[2025-02-18] MEDS: LIPITOR 80 MG PO (08:16)
[2025-02-18] MEDS: DEMADEX 100 MG PO (08:16)
[2025-02-18] MEDS: COREG 25 MG PO ×2 (08:16→20:12)
[2025-02-18] MEDS: NEPHROCAP 1 CAPSULE PO (08:16)
[2025-02-18] MEDS: HEPARIN 5000 UNITS SC ×2 (08:17→17:12)
[2025-02-18] MEDS: SENSIPAR 60 MG PO (08:18)
[2025-02-18] MEDS: DIOVAN 320 MG PO (08:18)
[2025-02-18 08:42] LABS: Blood Urea Nitrogen 30 mg/dl (9-20); Calcium 9.3 mg/dl (8.4-10.2); Carbon Dioxide 30 mmol/L (22-30); Chloride 100 mmol/L (98-107); Estimated Creatinine Clearance 17 ml/min; Glucose 87 mg/dl (70-99); Phosphorus 4.1 mg/dl (2.5-4.5); Potassium 3.8 mmol/L (3.5-5.1); Sodium 140 mmol/L (135-145); eGFR 8.54
--- NOTE | 2025-02-18 13:05 | W.PN.CD ---
Today's Communication / Plan
-
Critical --> discuss with patient and TAVR team
Volume management with HD. Would not be aggressive with critical
Impression / Plan
-
I/P: 59M with ESRD on HD, heart failure, hypertension, dyslipidemia, NIDDM, and obesity who presented to the emergency department with a chief complaint of shortness of breath, found to have volume overload and critical aortic stenosis.
Outpatient manager laundry: Dr. Rios, transitioning to Dr. Panda
Shortness of breath
-Thought to be due to missed HD and volume overload but echo 02/18/25 also shows critical
-HFpEF management as below
-Will discuss TAVR evaluation with him and structural team
Critical aortic stenosis
-TTE 02/18/25: LVEF 65-70%, dilated RV, mild MS (12/4 mmHg), critical (100/69 mmHg, ALEXANDRA 0.7)
-Discuss with him and structural team
HFpEF, acute on chronic
-Volume overloaded on admission. Now back to previous dry weight.
-Volume management with hemodialysis. Would not be aggressive with critical .
-Trend daily weight, I/O with HD
-HF education
Abnormal troponin, nonischemic myocardial injury in the setting of acute heart failure and ESRD
-Chest pain-free, EKG stable
ESRD on HD
-Nephrology following
AV fistula, right upper extremity, chronic swelling with some discoloration in his fingers, he reports this is unchanged
Hypertension, managed by nephrology
Incomplete right bundle branch block, present on prior EKG (10/14/2024)
NIDDM, Hgba1c pending, per primary
Dyslipidemia, on atorvastatin
Subjective: Improved compared to yesterday but breathing still somewhat labored.
Physical Exam
Vital Signs/Labs
Vital Signs
Temp Pulse Resp BP Pulse Ox
97.7 F 65 20 128/81 96
02/18/25 12:12 02/18/25 12:12 02/18/25 12:12 02/18/25 12:12 02/18/25 12:12
02/17/25 02/18/25 02/19/25
06:59 06:59 06:59
Actual Weight 142 kg 137.637 kg
02/17/25 04:44
02/18/25 07:17
02/17/25
04:56
Xcs-N-Xbaxqdqqwbr Pept > 26488
LAB Results
02/17/25 02/17/25 02/17/25
04:56 08:33 17:35
Troponin I 0.184 H* 0.184 H* 0.161 H*
Physical Exam
Constitutional: No acute distress and Comfortable
Cardiovascular: Rhythm & rate is regular, Pedal edema present, Systolic murmur present and S1S2 is normal
Respiratory: Respiratory effort normal and Lungs clear to auscul.
Neuro/Psych: AO x 3
Data Reviewed
-
Date of Service: February 18, 2025
Medical Decision Making: Reviewed Test Results, Independent Historian Assessment, Test Interpretation and Review of Case with other Provider
EKG: Tracing Personally Visualized and interpreted
Echo: Tracing Personally Visualized and interpreted
Labs: Labs Reviewed by me
--- NOTE | 2025-02-18 13:54 | CONSULT.CT ---
Consultation
-
Date/Time Consultation Requested: 02/18/25
Date/Time Consultation Performed: 02/18/25
Requesting Provider: Carlota
Performing Provider: Serena Orozco PA-C for Dr. Yonis Padron
Reason for Consultation: aortic stenosis
Patient History
Physicians
Family Physician: Homar Mann
Outpatient Supervisor Agricultural Education: Jadyn Rios
Inpatient Supervisor Agricultural Education: Faye
History of Present Illness
Pt is a 59y/oM with PMH of HTN, HLD, NIDDM, TIA, ESRD on HD MWF (x1.5 years), recent PNA who presented to the ER with complaints of 3 days of worsening SOB. Pt reports missing dialysis on Wednesday 02/14 and thought his SOB was related to recent PNA,
but symptoms worsened significantly and he came to the ER. Upon eval pt noted to have mildly elevated troponins but EKG nonischemic (SR with 1st degree). Further evaluation with echo demonstrated normal LV function with critical , PG/MG 100/69
with ALEXANDRA 0.7cm2. Pt does still make some urine and reports some response to diuretics since being admitted. He is no longer SOB at rest, but still feels SIERRA with ambulation.
Past Medical History
Past Medical History: Other
Hypertension
hyperlipidemia
NIDDM
hx TIA 2017
ESRD on HD MWF (x1.5 years)
secondary hyperparathyroidism
hx calciphylaxis b/l LE
Past Surgical History
hx failed LUE fistula
RUE fistula (matured)
R IJ temp cath
Family History
Family Medical History: Other (no FH CAD)
Social History
Alcohol: None
Drug: None
Tobacco: Other (frequent cigars, none since recent PNA (~2 weeks))
Personal: (, Mikaela, at bedside)
Living: With Spouse
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
Allergies
Allergy/AdvReac Type Severity Reaction Status Date / Time
No Known Allergies Allergy Verified 02/17/25 03:29
Home Medications
�Medication �Instructions �Recorded �Confirmed �Type
atorvastatin 80 mg tablet (Lipitor) 80 mg PO DAILY High Cholesterol 09/10/24 02/17/25 History
carvedilol 25 mg tablet 25 mg PO BID Heart 09/10/24 02/17/25 History
Disease/Condition
cinacalcet 60 mg tablet 60 mg PO DAILY Hormonal Agent 09/10/24 02/17/25 History
sevelamer HCl 800 mg tablet 800 mg PO MEALS Kidney Disease 09/10/24 02/17/25 History
torsemide 100 mg tablet 100 mg PO DAILY Fluid 09/10/24 02/17/25 History
Retention/Swelling
valsartan 320 mg tablet 320 mg PO DAILY Blood Pressure 09/10/24 02/17/25 History
vitamin B complex-vitamin C-folic 1 tab PO DAILY 09/10/24 02/17/25 History
acid 0.8 mg tablet (Dialyvite 800)
Review of Systems
-
History Source: Patient
General: Reports Weight Gain; Denies Fever or Chills
HEENT: Reports No Symptoms
Respiratory: Reports SOB and SIERRA; Denies Cough
Cardiac: Reports Edema; Denies Chest Pain or Palpitations
Abdomen/GI: Denies Abdominal Pain, Nausea or Vomiting
: Reports No Symptoms
Musculoskeletal: Reports No Symptoms
Skin: Reports No Symptoms
Neurological: Denies Syncope or Seizures
Vascular: Reports No Symptoms
Physical Exam
Vital Signs
Temp 97.7 F 02/18/25 12:12
Temp route: Oral 02/18/25 12:12
Pulse 65 02/18/25 12:12
Rhythm: Normal sinus rhythm 02/18/25 08:33
With- First Degree Heart Block, Prolonged QT interval 02/18/25 08:33
Resp Rate 20 02/18/25 12:12
Blood pressure 128/81 02/18/25 12:12
Blood pressure extremity used: Left forearm 02/18/25 12:12
Position: Sitting 02/18/25 12:12
MAP (cuff-Fish Monitor) 75 02/17/25 16:22
SaO2 96 02/18/25 12:12
Nasal Cannula flow liters per minute 2 02/18/25 12:12
Oxygen Mode of Delivery Room air 02/17/25 05:22
Flow liters per minute # 2 02/18/25 08:33
Acceptable pain level during hospitalization? 0 02/17/25 03:24
Can the patient verbally communicate their pain? Yes 02/18/25 08:33
Actual Weight 137.637 kg 02/18/25 06:00
Body Mass Index (BMI) 41.2 02/18/25 06:00
Labs
02/17/25 04:44
02/18/25 07:17
Hemoglobin A1c 5.4 % (4.0-5.6) 02/17/25 04:44
Troponin I 0.161 ng/ml H* 02/17/25 17:35
Rup-O-Pmnhwjlnttv Pept > 93388 pg/ml 02/17/25 04:56
Exam
General: Well Developed, Well Nourished and No Apparent Distress
HEENT: Normocephalic and Anicteric
Neck: Trachea Midline; Negative Mass
Respiratory: Clear; Negative Wheezes, Crackles or Rhonchi
Cardiac: S1/S2, Regular Rhythm and Murmur (2/6 systolic murmur)
GI: Soft and Non Tender
Rectal: Deferred by Provider
Skin: Warm and Dry
Neuro: Nonfocal/Grossly Intact
Extremities: Upper Level Edema (RUE 3+ edema since fistula) and Lower Level Edema (b/l 2+ edema with chronic skin changes/hyperpigmentation)
Psych: Calm
Assessment / Plan
-
critical aortic stenosis
acute HFpEF
non FL troponin elevation
- Discussed with patient and his at bedside--will initiate preoperative workup to delineate risk of open AVR vs TAVR. He will need cardiac catheterization, TAVR protocol CT chest, US carotids, panelipse. We will continue to follow along.
Continue medical management per primary/cards/nephro. Full evaluation by attending to follow.
Data Reviewed
-
Echo: Report Reviewed by me
Labs: Labs Reviewed by me
--- NOTE | 2025-02-18 14:58 | W.PN.HOSP.TC ---
Today's Communication/Plan
-
Await decision on timing/location of planned TAVR
Assessment / Plan
Assessment / Plan
59 y.o w/ h/o CHF, HTN, ESRD on HD M/W/F presenting with SOB and hypoxia. Missed HD on monday. Xray with pulmonary edema. He had non-pitting edema in [place] and RUE on admission. BNP > 84420. Trop also elevated to 0.1. No chest pain. No
ischemia on ECG. Suspect CHF exacerbation secondary to volume overload. He still makes urine on torsemide.
PLAN:
CHF Exacerbation - Suspect mostly secondary to volume overload from missed dialysis and large interdialytic weight gain. Trop elevated but can be seen with severe volume O/D. No CP or ischemia on ECG. He has no signs of acute infection.
- admit to telemetry for now
- oxygenating well on 2 L with minimal increase in wob
- BP is normal, will hold off nitroglycerin for now
- attempted diuresis with lasix 80mg iv
- urgent hemodialysis for u/f -> nephrology notified from ED
- fluid and salt restrictions
- echo: Left ventricular ejection fraction is 65-70%. Normal regional wall motion.
Mildly enlarged right ventricular size. Normal right ventricular systolic
function.
Mild mitral stenosis; peak/mean 12/4 mmHg.
Critical aortic stenosis; peak/mean gradients 100/69 mmHg, calculated ALEXANDRA is
0.7 cm2
- aspirin x 1, continue carvedilol, statin
- cardiology consultation
Critical Aortic Stenosis noted on echo. ALEXANDRA is 0.7 cm2
cardio input appreciated. CT has been consulted. Await decision as to timing of TAVR. Potential dialysis prior to dc. Discussed with pt various options of where he would want surgical intervention
Trop elevation - suspect from CHF exacerbation and esrd but cannot rule out nstemi. No chest pain. No h/o CAD.
- assa 324 x 1
- trend troponins
- diuresis and dialysis as above
- echo
- ntg prn cp
- cardiology consult
ESRD - Vol O/D from missed dialysis suspectec. K 3.9. bicarb 24
- nephrology consult for HD, has permcath in R IJ and a functional RUE AVF with good thrill and bruit
- has RUE swelling since fistula placement, outpatient u/s negative, plan to remove permcath by outpatient HD to help relieve swelling
- continue sevalamer cincalcet and dialyvite
- continue valsartan and torsemide
DVT PPX - heparin sq
Code status - Full code
will hold dc
Anticipated Discharge: 24 - 48 hours
Subjective/Interval History
-
Date of Service: February 18, 2025
Awake, alert, conversant
Objective Data
-
Labs:
Laboratory Results
02/18/25
07:17
Sodium 140
Potassium 3.8
Chloride 100
Carbon Dioxide 30
BUN 30 H
Creatinine 6.9 H*
Glucose 87
Calcium 9.3
Vital Signs:
Vital Signs
Temp Pulse Resp BP Pulse Ox
97.7 F 65 20 123/72 96
02/18/25 12:12 02/18/25 12:12 02/18/25 12:12 02/18/25 14:12 02/18/25 12:12
I&O
02/17/25 02/18/25 02/19/25
06:59 06:59 06:59
Output Total 325 / 325
Balance -325 / -325
Review of Systems
-
History Source: Patient and Coordinated Provider
Constitutional: Reports No Symptoms; Denies Fever
EENT: Reports No Symptoms Reported
Respiratory: Reports No Symptoms
Cardiac: Reports No Symptoms
Abdomen/GI: Reports No Symptoms
Genitourinary: Reports No Symptoms
Physical Exam
-
General: Well Developed, Well Nourished and No Apparent Distress
HEENT: Normocephalic, Atraumatic and Moist Mucous Membranes
Respiratory: Clear to Auscultation; Negative Wheezes, Rales or Rhonchi
Cardiac: Regular Rhythm, S1/S2 and Murmur (3/6AS m)
GI: Soft, Nontender and Nondistended
Musculoskeletal: No Clubbing and No Cyanosis; Negative No Edema (1-2+)
Neuro: Awake, Alert and Oriented
--- NOTE | 2025-02-18 15:16 | CM ---
Patient met at bedside
Echo - critical
Pt attends outpt HD at [facility] MWF [id number]
PLAN: home, CM to continue to follow for needs
Delia (p) [phone] (f) [phone]
--- NOTE | 2025-02-18 16:26 | W.PN.NEPH.PH ---
Today's Communication / Plan
-
HD tomorrow
Assessment/Plan
-
IMP:
CHF Exacerbation from missed dialysis
Trop elevation
end-stage renal disease on hemodialysis Monday, [facility] [place] since 1.5yr
Anemia ofCKD
hypertension
hyperlipidemia
Hyperphosphatemia
SHPTH
Plan:
A/w Pulm edema, missed HD
tolerated HD yesterday and wt down
echo shows critical and plan HC tomorrow
no UF planned today after d/w cards
HD tomorrow first and LHC after
cont diuretics
BP soft, can down titrate meds, hold ARB
using CVC still, avoiding access AVF per pt request and it is deep too
cotn phos binder and Cinacalcet
need better compliance with HD and diet
d/w pt in detail
-
-
Date of Service: February 18, 2025
CC / HPI / ROS
-
Chief Complaint:
ESRD
History of Present Illness:
tolerated HD yesterday and wt is down
BP soft
echo shows critical
wt is down
Review of Systems:
no cp or sob at rest
edema improving
Labs
-
Labs:
WBC 7.5 10^3/uL (4.8-10.8) 02/17/25 04:44
RBC 3.18 10^6/uL (4.70-6.10) L 02/17/25 04:44
Hgb 9.9 g/dL (13.0-18.0) L 02/17/25 04:44
Hct 28.8 % (39.0-52.0) L 02/17/25 04:44
Plt Count 145 10^3/uL (130-400) 02/17/25 04:44
Sodium 140 mmol/L (135-145) 02/18/25 07:17
Potassium 3.8 mmol/L (3.5-5.1) 02/18/25 07:17
Chloride 100 mmol/L (98-107) 02/18/25 07:17
Carbon Dioxide 30 mmol/L (22-30) 02/18/25 07:17
BUN 30 mg/dl (9-20) H 02/18/25 07:17
Creatinine 6.9 mg/dL (0.7-1.3) H* 02/18/25 07:17
eGFR 8.54 02/18/25 07:17
Glucose 87 mg/dl (70-99) 02/18/25 07:17
Calcium 9.3 mg/dl (8.4-10.2) 02/18/25 07:17
Phosphorus 4.1 mg/dl (2.5-4.5) 02/18/25 07:17
Nxz-X-Ffsvmtbylhy Pept > 72741 pg/ml 02/17/25 04:56
Albumin 4.0 g/dl (3.5-5.0) 02/17/25 04:44
Physical Exam
-
Vital Signs:
Vital Signs
Temp Pulse Resp BP Pulse Ox
97.8 F 69 18 118/68 93
02/18/25 15:51 02/18/25 15:51 02/18/25 15:51 02/18/25 15:51 02/18/25 15:51
Cardiovascular:: Regular rate and rhythm (murmur)
Respiratory:: Bilateral: Rales
Lung Excursion:: Normal
Abdomen:: Nontender and Soft
Extremity Edema:: +3: Bilateral:
Beaulieu Catheter: No
[2025-02-19] VITALS (12 sets, daily range): BP systolic 76–134; BP diastolic 45–85; BMI 41.2
[2025-02-19] MEDS: HEPARIN 5000 UNITS SC ×4 (00:20→23:31)
--- NOTE | 2025-02-19 08:02 | W.PN.HOSP.TC ---
Today's Communication/Plan
-
dialysis now
heart cath this afternoon
await decision on potential surgical intervention to follow heart cath
Assessment / Plan
Assessment / Plan
59 y.o w/ h/o CHF, HTN, ESRD on HD M/W/F presenting with SOB and hypoxia. Missed HD on monday. Xray with pulmonary edema. He had non-pitting edema in [place] and RUE on admission. BNP > 86043. Trop also elevated to 0.1. No chest pain. No
ischemia on ECG. Suspect CHF exacerbation secondary to volume overload in conjunction of critical . He still makes urine on torsemide.
PLAN:
CHF Exacerbation - Suspect mostly secondary to volume overload from missed dialysis and large interdialytic weight gain associated with critical Trop elevated but can be seen with severe volume O/D. No CP or ischemia on ECG. He has no signs of
acute infection.
- oxygenating well on 2 L SaO2 95-98%
- BP is normal, will hold off nitroglycerin for now
-hemodialysis 4/2
- fluid and salt restrictions
- echo: Left ventricular ejection fraction is 65-70%. Normal regional wall motion.
Mildly enlarged right ventricular size. Normal right ventricular systolic
function.
Mild mitral stenosis; peak/mean 12/4 mmHg.
Critical aortic stenosis; peak/mean gradients 100/69 mmHg, calculated ALEXANDRA is
0.7 cm2
- aspirin x 1, continue carvedilol 25 mg bid, statin
- cardiology consultation
Critical Aortic Stenosis noted on echo. ALEXANDRA is 0.7 cm2
cardio input appreciated. CT has been consulted. Await decision as to timing of TAVR. Discussed with pt various options of where he would want surgical intervention, as per pt, current plan is to have surgery here pending heart cath, which
is to be done /. Pending cath await decision as to timing and final decision on location to have done.
Trop elevation - suspect from CHF exacerbation and esrd but cannot rule out nstemi. No chest pain. No h/o CAD.
- asa 324 x 1
- trend troponins
- diuresis and dialysis as above
- ntg prn cp
- cardiology consult
ESRD - Vol O/D from missed dialysis suspectec. K 3.9. bicarb 24
- nephrology consult for HD, has permcath in R IJ and a functional RUE AVF with good thrill and bruit
- has RUE swelling since fistula placement, outpatient u/s negative, plan to remove permcath by outpatient HD to help relieve swelling
- continue sevalamer cincalcet and dialyvite
- continue torsemide, Diovan on hold
DVT PPX - heparin sq
Code status - Full code
Anticipated Discharge: 24 - 48 hours
Subjective/Interval History
-
Date of Service: February 19, 2025
Generally feels better, about to start dialysis session
Objective Data
-
Labs:
Laboratory Results
02/19/25
06:00
WBC Pending
Hgb Pending
Hct Pending
Plt Count Pending
PT Pending
INR Pending
APTT Pending
Sodium Pending
Potassium Pending
Chloride Pending
Carbon Dioxide Pending
BUN Pending
Creatinine Pending
Glucose Pending
Calcium Pending
Total Bilirubin Pending
AST Pending
ALT Pending
Alkaline Phosphatase Pending
Vital Signs:
Vital Signs
Temp Pulse Resp BP Pulse Ox
97.7 F 64 17 109/61 95
02/19/25 07:21 02/19/25 07:21 02/19/25 07:21 02/19/25 07:21 02/19/25 07:21
I&O
02/18/25 02/19/25 02/20/25
06:59 06:59 06:59
Intake Total 1260 / 1260
Output Total 325 / 325
Balance -325 / -325 1260 / 1260
Review of Systems
-
History Source: Patient and Coordinated Provider
Constitutional: Reports No Symptoms; Denies Fever
EENT: Reports No Symptoms Reported
Respiratory: Reports No Symptoms; Denies Trouble Breathing (none at rest)
Cardiac: Reports No Symptoms
Abdomen/GI: Reports No Symptoms
Genitourinary: Reports No Symptoms
Physical Exam
-
General: Well Developed, Well Nourished and No Apparent Distress
HEENT: Normocephalic, Atraumatic and Moist Mucous Membranes
Respiratory: Clear to Auscultation and Rales (atelectatic rales left base, clears after several deep breaths); Negative Wheezes or Rhonchi
Cardiac: Regular Rhythm, S1/S2 and Murmur (3/6AS m)
GI: Soft, Nontender and Nondistended
Musculoskeletal: No Clubbing and No Cyanosis; Negative No Edema (1-2+)
Neuro: Awake, Alert and Oriented
[2025-02-19] MEDS: LIPITOR 80 MG PO (08:06)
[2025-02-19] MEDS: SENSIPAR 60 MG PO (08:06)
[2025-02-19] MEDS: RENVELA 800 MG PO ×2 (08:06→17:44)
[2025-02-19] MEDS: NEPHROCAP 1 CAPSULE PO (08:06)
[2025-02-19] MEDS: HEPARIN 500 UNITS IV ×2 (08:35→09:39)
[2025-02-19] MEDS: RETACRIT 2000 UNITS IV (08:38)
[2025-02-19] MEDS: COREG PO (08:38)
[2025-02-19] MEDS: DEMADEX PO (08:39)
[2025-02-19 08:40] LABS: Hematocrit 28.5 % (39.0-52.0); Hemoglobin 9.6 g/dL (13.0-18.0); Mean Corp Hgb Conc. 33.7 g/dL (33.0-37.0); Mean Corpuscular Volume 91.9 fL (80.0-94.0); Mean Platelet Volume 10.6 fL (7.4-10.4); Platelet Count 141 10^3/uL (130-400); Red Cell Dist. Width 13.5 % (11.5-14.5); White Blood Cell Count 5.2 10^3/uL (4.8-10.8)
--- NOTE | 2025-02-19 09:20 | W.PN.NEPH.HD ---
Assessment
-
Patient seen on dialysis
Systolic blood pressure 131 at current UF
Progress Note - Hemodialysis
-
Date of Service: February 19, 2025
Duration: 30 minutes and 3 hours
Potassium Bath: 2
Calcium Bath: 2.5
Opti-Dialyzer: 160
Ultrafiltration: Other (2.5 kg)
Blood Flow: 400
Dialysate Flow: 600
Heparin: 500 x 2
EPO: 2000
[2025-02-19 09:40] LABS: INR 1.03
[2025-02-19 09:41] LABS: APTT 33.7 Sec (23.4-35.0)
--- NOTE | 2025-02-19 10:30 | W.PN.CD ---
Today's Communication / Plan
-
Cardiac catheterization today.
Impression / Plan
-
Impression/Plan: 59M with ESRD on HD, hypertension, dyslipidemia, NIDDM and obesity admitted with acute on chronic HFpEF secondary to newly diagnosed critical aortic valve stenosis compounded by a missed HD session.
#Critical aortic stenosis
-New diagnosis.
-TTE 02/18/25: LVEF 65-70%, dilated RV, mild MS (12/4 mmHg), critical (100/69 mmHg, ALEXANDRA 0.7).
-CT surgery consulted.
-Cardiac catheterization today to clarify coronary anatomy/filling pressures as a pre-amble to AVR (TAVR vs. SAVR).
#HFpEF
-Acute on chronic.
-He does still make urine with torsemide, but volume is managed with hemodialysis. Would not be aggressive with critical .
-Trend daily weight, I/O with HD.
-HF education.
#Abnormal troponin
-Likely nonischemic myocardial injury in the setting of acute heart failure and ESRD.
-Chest pain-free, EKG stable.
-Cardiac catheterization today to clarify coronary artery anatomy.
#ESRD on HD
-Chronic, stable.
-Still makes urine.
-Nephrology following.
#AV fistula
-Right upper extremity, chronic swelling with some discoloration in his fingers.
-He reports this is unchanged.
#Hypertension
-Chronic, stable.
-Managed by nephrology.
-Carvedilol held this morning, valsartan held since 02/17/2025.
#NIDDM
-Chronic, stable.
-Hgba1c pending.
-Management per primary service.
#Dyslipidemia
-Chronic.
-Continue atorvastatin.
#Incomplete right bundle branch block, present on prior EKG (10/14/2024)
Outpatient time study technologist: Dr. Rios, transitioning to Dr. Panda.
Subjective/Interval History:
Weight stable.
No current chest pain.
DATA:
Transthoracic Echocardiogram, 02/18/2025:
CONCLUSIONS
Left ventricular ejection fraction is 65-70%. Normal regional wall motion.
Mildly enlarged right ventricular size. Normal right ventricular systolic
function.
Mild mitral stenosis; peak/mean 12/4 mmHg.
Critical aortic stenosis; peak/mean gradients 100/69 mmHg, calculated ALEXANDRA is
0.7 cm2.
No prior study available for comparison.
Physical Exam
Vital Signs/Labs
Vital Signs
Temp Pulse Resp BP Pulse Ox
36.5 C 64 17 109/61 95
02/19/25 07:21 02/19/25 07:21 02/19/25 07:21 02/19/25 07:21 02/19/25 07:21
02/17/25 02/18/25 02/19/25
11:59 11:59 11:59
Actual Weight 142 kg 137.637 kg 137.62 kg
02/19/25 08:27
PT 14.0 Sec (11.4-14.6) 02/19/25 09:20
INR 1.03 02/19/25 09:20
APTT 33.7 Sec (23.4-35.0) 02/19/25 09:20
02/17/25
04:56
Box-S-Xtpwlurwnle Pept > 05367
LAB Results
02/17/25 02/17/25 02/17/25
04:56 08:33 17:35
Troponin I 0.184 H* 0.184 H* 0.161 H*
Physical Exam
Constitutional: No acute distress and Comfortable
EENT: Anicteric and Moist mucous membranes
Cardiovascular: Rhythm & rate is regular, Pedal edema is absent, JVD pressure is normal, Systolic murmur present and S1S2 is normal
Respiratory: Respiratory effort normal, Lungs clear to auscul., Wheeze Absent, Crackles Absent and Rhonchi Absent
GI: Soft, Distention absent, Flat, Non tender, Normal bowel sounds and Distention present
Neuro/Psych: AO x 3
Other: Other (RUE is edematous.)
Data Reviewed
-
Date of Service: February 19, 2025
Medical Decision Making: Reviewed Test Results, Independent Historian Assessment and Test Interpretation
EKG: Tracing Personally Visualized and interpreted and Report Reviewed by me
Echo: Tracing Personally Visualized and interpreted and Report Reviewed by me
X-Ray/CT/US/MRI/NUC/PET: Image Personally Visualized and interpreted and Report Reviewed by me
Labs: Labs Reviewed by me
Old Records: Reviewed
[2025-02-19 10:55] LABS: ALT (SGPT) 15 U/L (0-50); AST (SGOT) 24 U/L (17-59); Albumin 4.2 g/dl (3.5-5.0); Alkaline Phosphatase 60 U/L (38-126); Blood Urea Nitrogen 41 mg/dl (9-20); Calcium 9.3 mg/dl (8.4-10.2); Carbon Dioxide 29 mmol/L (22-30); Chloride 99 mmol/L (98-107); Direct Bilirubin 0.4 mg/dl (0.0-0.4); Estimated Creatinine Clearance 13 ml/min; Glucose 92 mg/dl (70-99); Potassium 3.8 mmol/L (3.5-5.1); Sodium 139 mmol/L (135-145); Total Protein 7.9 g/dl (6.3-8.2); eGFR 6.29
[2025-02-19] MEDS: HEPARIN 4300 UNITS INTRACATH (11:16)
[2025-02-19] MEDS: RENVELA PO (12:06)
--- NOTE | 2025-02-19 13:27 | CM ---
Met with patient at bedside.
HD today
Await cardiac cath
PLAN: home, outpatient dialysis, CM to continue to follow
Delia (p) [phone] (f) [phone]
--- NOTE | 2025-02-19 15:18 | ITS.CL.CATH ---
Motor Man - Catheterization
Cardiac Catheterization
Procedure Report:
CARDIAC CATHETERIZATION REPORT
Date of Procedure: 02/19/2025
Referring: Abilio Tapia M.D.
Indication: Critical aortic valve stenosis, new congestive heart failure.
PROCEDURE:
1. Right heart catheterization.
2. Coronary angiography.
3. Left heart catheterization.
4. Aortic valve interrogation.
5. Mitral valve interrogation.
A total of 25 minutes of procedural/moderate sedation was utilized. An independent medical orderly was present to assist with and help manage the patient's level of consciousness and physiologic status.
ACCESS:
1. 6 Moroccan right common femoral artery using a modified Seldinger technique with a micropuncture kit under ultrasound guidance. Ultrasound image obtained.
2. 5 Moroccan right common femoral vein using a modified Seldinger technique with a micropuncture kit under ultrasound guidance. Ultrasound image obtained.
CATHETERS:
1. 5 Moroccan balloon.
2. 5 Moroccan JL4.
3. 5 Moroccan JR.
4. 6 Moroccan Whittier dual-lumen pigtail catheter.
HEMODYNAMIC DATA
Weight (kg): 137.4
AO (s/d/x, mmHg): 139/68/96
LV (s/x, mmHg): 216/30 (A wave to 42)
PCWP (a/v/x, mmHg): 37/55/40
PA (s/d/x, mmHg): 88/36/52
RV (s/x, mmHg): 88/10
RA (a/v/x, mmHg): 16/14/11
SVC SvO2 (%): 67.9
IVC SvO2 (%): Not obtained.
RA SvO2 (%): Not obtained.
RV SvO2 (%): Not obtained.
PA SvO2 (%): 56.3
SaO2 (%): 87.2
Hbg (g/dL): 10.0
ASHLEY
CO (L/min): 7.0
CI (L/min/m2): 2.75
Thermodilution
CO (L/min): Not performed.
CI (L/min/m2): Not performed.
TPG (mmHg): 12
PVR (De La Fuente Units): 1.71
SVR (dynes*seconds*cm^-5): 971
AVO2 Diff (Volume %): 4.20
AV gradient (x, mmHg): 73.9
AV area (cm2): 0.64
MV gradient (x, mmHg): 10.4
MV area (cm2): 2.57
LEFT VENTRICULOGRAPHY: Not performed.
AORTOGRAPHY: Not performed.
CORONARY ANGIOGRAPHY
Dominance: Right.
Left Main: Normal size, bifurcating vessel. There is no coronary artery disease.
LAD: Large size vessel giving rise to 1 significant diagonal. There is a 30% lesion in the proximal LAD.
Ramus: Congenitally absent.
Circumflex: Large size, nondominant vessel giving rise to 1 large obtuse marginal. The obtuse marginal subsequently bifurcates into 2 daughter vessels. There is no coronary artery disease.
RCA: Normal size, dominant vessel. There is a 30-40% lesion in the proximal vessel.
INTERVENTIONS
None.
Closure Device: Manual pressure for the right common femoral artery and vein.
Radiation dose (mGy): 779.80
DAP (cm2.Gy): 74.4528
Fluoroscopy time (minutes): 7.7
CONCLUSIONS:
1. Right dominant circulation with a 30% lesion in the proximal LAD and a 30-40% lesion in the proximal RCA.
2. Severely elevated filling pressures (LVEDP = 30 mmHg, PCWP = 40 mmHg at 137.4 kg) with evidence of diastolic dysfunction (A wave to 42 mmHg).
3. Critical aortic valve stenosis (mean gradient 73.9 mmHg, ALEXANDRA 0.64 cm�).
4. Mild mitral valve stenosis (mean gradient 10.4 mmHg, MVA = 2.57 cm�), with high gradient likely due to high cardiac output.
5. Elevated cardiac output likely due to AV fistula for hemodialysis (CO = 7.0 L/min, CI = 2.75 L/min/m�).
6. Severe postcapillary pulmonary hypertension (mean PA = 52 mmHg, PCWP = 40 mmHg, CO = 7.0 L/min, PVR = 1.71 De La Fuente units), WHO group 2.
RECOMMENDATIONS:
1. Expectant management after cardiac catheterization via right common femoral approach.
2. Limited weight bearing for one week.
3. Consultation with CT surgery regarding optimal valve replacement strategy.
4. Continue aggressive diuresis/volume control with TAILOR GARMENT FITTER.
5. OMT/GDMT as hemodynamics will tolerate.
Copy to: Abilio Tapia M.D., Homar Mann M.D.
Isreal Mas, , FACC, FACP
[2025-02-19] MEDS: COREG 25 MG PO (20:24)
[2025-02-19 21:34] LABS: Urine Albumin 3+ (Neg - Trace); Urine Bilirubin Negative (Negative); Urine Character Clear (Clear); Urine Color Yellow; Urine Glucose Negative (Negative); Urine Ketone Negative (Negative); Urine Leukocyte Negative (Negative); Urine Nitrite Negative (Negative); Urine Occult Blood 2+ (Negative); Urine Urobilinogen Negative (Neg - 1+)
[2025-02-19 21:49] LABS: Urine Bacteria Few (Negative); Urine Red Blood Cell 0-2 /HPF (0-2)
[2025-02-19] MEDS: ProAmatine 10 MG PO (23:03)
[2025-02-19] MEDS: HEPARIN SC (23:04)
[2025-02-20 03:00] VITALS: BP 92/57
[2025-02-20 06:00] VITALS: BMI 40.5
[2025-02-20 06:54] LABS: Blood Urea Nitrogen 29 mg/dl (9-20); Calcium 8.7 mg/dl (8.4-10.2); Carbon Dioxide 28 mmol/L (22-30); Chloride 101 mmol/L (98-107); Estimated Creatinine Clearance 18 ml/min; Glucose 76 mg/dl (70-99); Potassium 3.7 mmol/L (3.5-5.1); Sodium 138 mmol/L (135-145); eGFR 9.35
[2025-02-20 07:24] VITALS: BP 98/54
[2025-02-20 07:25] VITALS: BMI 40.5
--- NOTE | 2025-02-20 07:34 | PTCARENOTE ---
Patient's blood pressure was 76/47. ANALYSIS TESTER Emiliana Harris notified. See MAR. Patient's nose also bleeding. NIELS Harris notified. This RN applied humidification to oxygen. Will continue to monitor.
--- NOTE | 2025-02-20 07:46 | W.PN.CD ---
Today's Communication / Plan
-
TAVR CTA.
Discuss options with family, including transfer if needed.
Continue gentle diuresis and UF.
Holding carvedilol/valsartan for the time being.
Impression / Plan
-
Impression/Plan: 59M with ESRD on HD, hypertension, dyslipidemia, NIDDM and obesity admitted with acute on chronic HFpEF secondary to newly diagnosed critical aortic valve stenosis compounded by a missed HD session.
#Critical aortic stenosis
-New diagnosis.
-TTE 02/18/25: LVEF 65-70%, dilated RV, mild MS (12/4 mmHg), critical (100/69 mmHg, ALEXANDRA 0.7).
-CT surgery consulted.
-Cardiac catheterization confirms critical , mild MS, no occlusive CAD, severely elevated filling pressures.
-TAVR CTA this morning.
-Discussed at valve meeting. TAVR CTA will determine next steps (TAVR vs. minimally invasive SAVR vs. traditional SAVR).
-Valve intervention may need to be done inpatient as his is going to limit his ability to tolerate [employer] SCHEDULER and volume removal.
#HFpEF
-Acute on chronic.
-He does still make urine with torsemide, but volume is managed with hemodialysis.
-UF is delicate given his critical .
-Trend daily weight, I/O with HD.
-HF education.
#Abnormal troponin
-Nonischemic myocardial injury (NIMI) in the setting of acute heart failure, critical and ESRD.
-Chest pain-free, EKG stable.
-Cardiac catheterization shows non-occlusive CAD.
#ESRD on HD
-Chronic, stable.
-Still makes urine.
-Nephrology following.
#AV fistula
-Right upper extremity, chronic swelling with some discoloration in his fingers.
-He reports this is unchanged.
#Hypertension
-Chronic, stable.
-Managed by nephrology.
-Hold carvedilol and valsartan for the time being given relative hypotension.
#NIDDM
-Chronic, stable.
-Hgba1c pending.
-Management per primary service.
#Dyslipidemia
-Chronic.
-Continue atorvastatin.
#Incomplete right bundle branch block, present on prior EKG (10/14/2024)
Outpatient development coordinator: Dr. Rios, transitioning to Dr. Panda.
Subjective/Interval History:
Cardiac catheterization shows no occlusive CAD.
Hypotensive this morning - documented at 76/47, improved to 98/54.
Weight down 2.3 kg from yesterday ([employer] SCHEDULER).
Remains on 2LNC.
DATA:
Transthoracic Echocardiogram, 02/18/2025:
CONCLUSIONS
Left ventricular ejection fraction is 65-70%. Normal regional wall motion.
Mildly enlarged right ventricular size. Normal right ventricular systolic
function.
Mild mitral stenosis; peak/mean 12/4 mmHg.
Critical aortic stenosis; peak/mean gradients 100/69 mmHg, calculated ALEXANDRA is
0.7 cm2.
No prior study available for comparison.
Cardiac Catheterization, 02/19/2025:
CONCLUSIONS:
1. Right dominant circulation with a 30% lesion in the proximal LAD and a 30-40% lesion in the proximal RCA.
2. Severely elevated filling pressures (LVEDP = 30 mmHg, PCWP = 40 mmHg at 137.4 kg) with evidence of diastolic dysfunction (A wave to 42 mmHg).
3. Critical aortic valve stenosis (mean gradient 73.9 mmHg, ALEXANDRA 0.64 cm�).
4. Mild mitral valve stenosis (mean gradient 10.4 mmHg, MVA = 2.57 cm�), with high gradient likely due to high cardiac output.
5. Elevated cardiac output likely due to AV fistula for hemodialysis (CO = 7.0 L/min, CI = 2.75 L/min/m�).
6. Severe postcapillary pulmonary hypertension (mean PA = 52 mmHg, PCWP = 40 mmHg, CO = 7.0 L/min, PVR = 1.71 De La Fuente units), WHO group 2.
Physical Exam
Vital Signs/Labs
Vital Signs
Temp Pulse Resp BP Pulse Ox
36.7 C 68 17 98/54 95
02/20/25 07:24 02/20/25 07:24 02/20/25 07:24 02/20/25 07:24 02/20/25 07:24
02/18/25 02/19/25 02/20/25
11:59 11:59 11:59
Actual Weight 137.637 kg 137.62 kg 135.397 kg
02/19/25 08:27
02/20/25 06:03
PT 14.0 Sec (11.4-14.6) 02/19/25 09:20
INR 1.03 02/19/25 09:20
APTT 33.7 Sec (23.4-35.0) 02/19/25 09:20
02/17/25
04:56
Mif-N-Wlprlvabjub Pept > [id number]
LAB Results
02/17/25 02/17/25
08:33 17:35
Troponin I 0.184 H* 0.161 H*
Physical Exam
Constitutional: No acute distress and Comfortable
EENT: Anicteric
Cardiovascular: Rhythm & rate is regular, Systolic murmur present and S1S2 is normal
Respiratory: Respiratory effort normal and Other (Decreased at the bases.)
GI: Soft, Distention absent, Flat, Non tender and Normal bowel sounds
Neuro/Psych: AO x 3
Other: Cath Site (Right common femoral access site is C/D/I.)
Data Reviewed
-
Date of Service: February 20, 2025
Medical Decision Making: Reviewed Test Results, Independent Historian Assessment and Test Interpretation
EKG: Tracing Personally Visualized and interpreted and Report Reviewed by me
Echo: Tracing Personally Visualized and interpreted and Report Reviewed by me
X-Ray/CT/US/MRI/NUC/PET: Image Personally Visualized and interpreted and Report Reviewed by me
Medical Tests (PFT, Pathology etc): Image Personally Visualized and interpreted and Report Reviewed by me
Labs: Labs Reviewed by me
Old Records: Reviewed
--- NOTE | 2025-02-20 08:48 | W.PN.HOSP.TC ---
Addendum entered and electronically signed by Markie Winter MD 02/20/25 16:08:
Met with patient and this afternoon. Confirmed that there preference would be [facility] to have valve replacement surgery.
Reviewed with Dr. Mas, who also confirmed that would be their preference.
He called and reviewed case with Dr. Jadyn Rios at [facility] who has accepted the patient.
I contacted the transfer center, completed the transfer forms, including patient signing. Await bed availability
Original Note:
Today's Communication/Plan
-
await decision as to location of valve surgery
Assessment / Plan
Assessment / Plan
59 y.o w/ h/o CHF, HTN, ESRD on HD M/W/F presenting with SOB and hypoxia. Missed HD on monday. Xray with pulmonary edema. He had non-pitting edema in kanwal le and RUE on admission. BNP > 66315. Trop also elevated to 0.1. No chest pain. No
ischemia on ECG. Suspect CHF exacerbation secondary to volume overload in conjunction of critical . He still makes urine on torsemide.
PLAN:
CHF Exacerbation - Suspect mostly secondary to volume overload from missed dialysis and large interdialytic weight gain associated with critical Trop elevated but can be seen with severe volume O/D. No CP or ischemia on ECG. He has no signs of
acute infection.
- oxygenating well on 2 L SaO2 95-98%
- BP is normal, will hold off nitroglycerin for now
-hemodialysis 4/2
- fluid and salt restrictions
- echo: Left ventricular ejection fraction is 65-70%. Normal regional wall motion.
Mildly enlarged right ventricular size. Normal right ventricular systolic
function.
Mild mitral stenosis; peak/mean 12/4 mmHg.
Critical aortic stenosis; peak/mean gradients 100/69 mmHg, calculated ALEXANDRA is
0.7 cm2
- aspirin x 1, continue carvedilol 25 mg bid, statin
- cardiology consultation
wt 142-->138-->135.4kg
Call placed and discussed with Dr. Mas. Await definite decision as to where procedure will be done. If it is to be done at [facility], will then need clarification whether pt is to be transferred down to [facility] vs discharge and follow up as outpatient.
For now, will plan dialysis in hospital tomorrow
Critical Aortic Stenosis noted on echo. ALEXANDRA is 0.7 cm2
cardio input appreciated. CT has been consulted. Await decision as to timing of TAVR. Discussed with pt various options of where he would want surgical intervention, as per pt, current plan is to have surgery at [facility], which is family
preference.
heart cath: 1. Right dominant circulation with a 30% lesion in the proximal LAD and a 30-40% lesion in the proximal RCA.
2. Severely elevated filling pressures (LVEDP = 30 mmHg, PCWP = 40 mmHg at 137.4 kg) with evidence of diastolic dysfunction (A wave to 42 mmHg).
3. Critical aortic valve stenosis (mean gradient 73.9 mmHg, ALEXANDRA 0.64 cm�).
4. Mild mitral valve stenosis (mean gradient 10.4 mmHg, MVA = 2.57 cm�), with high gradient likely due to high cardiac output.
5. Elevated cardiac output likely due to AV fistula for hemodialysis (CO = 7.0 L/min, CI = 2.75 L/min/m�).
6. Severe postcapillary pulmonary hypertension (mean PA = 52 mmHg, PCWP = 40 mmHg, CO = 7.0 L/min, PVR = 1.71 De La Fuente units), WHO group 2.
RECOMMENDATIONS:
1. Expectant management after cardiac catheterization via right common femoral approach.
2. Limited weight bearing for one week.
3. Consultation with CT surgery regarding optimal valve replacement strategy.
4. Continue aggressive diuresis/volume control with TELEGRAPH INSTALLER.
5. OMT/GDMT as hemodynamics will tolerate.
Trop elevation - suspect from CHF exacerbation and esrd but cannot rule out nstemi. No chest pain. No h/o CAD.
- asa 324 x 1
- diuresis and dialysis as above
- ntg prn cp
- cardiology consult
ESRD - Vol O/D from missed dialysis suspectec. K 3.9. bicarb 24
- nephrology consult for HD, has permcath in R IJ and a functional RUE AVF with good thrill and bruit
- has RUE swelling since fistula placement, outpatient u/s negative, plan to remove permcath by outpatient HD to help relieve swelling
- continue sevalamer cincalcet and dialyvite
- continue torsemide, Diovan on hold
DVT PPX - heparin sq
Code status - Full code
Anticipated Discharge: 24 - 48 hours
Subjective/Interval History
-
Date of Service: February 20, 2025
Situation reviewed with patient
Objective Data
-
Labs:
Laboratory Results
02/20/25
06:03
Sodium 138
Potassium 3.7
Chloride 101
Carbon Dioxide 28
BUN 29 H
Creatinine 6.4 H*
Glucose 76
Calcium 8.7
Vital Signs:
Vital Signs
Temp Pulse Resp BP Pulse Ox
98.1 F 68 17 98/54 95
02/20/25 07:24 02/20/25 07:24 02/20/25 07:24 02/20/25 07:24 02/20/25 07:24
I&O
02/19/25 02/20/25 02/21/25
06:59 06:59 06:59
Intake Total 1260 / 1260 240 / 240
Output Total 200 / 200
Balance 1260 / 1260 40 / 40
Review of Systems
-
History Source: Patient and Coordinated Provider
Constitutional: Reports No Symptoms; Denies Fever
EENT: Reports No Symptoms Reported
Respiratory: Reports No Symptoms; Denies Trouble Breathing (none at rest)
Cardiac: Reports No Symptoms
Abdomen/GI: Reports No Symptoms
Genitourinary: Reports No Symptoms
Physical Exam
-
General: Well Developed, Well Nourished and No Apparent Distress
HEENT: Normocephalic, Atraumatic and Moist Mucous Membranes
Respiratory: Clear to Auscultation and Rales (atelectatic rales left base, clears after several deep breaths); Negative Wheezes or Rhonchi
Cardiac: Regular Rhythm, S1/S2 and Murmur (3/6AS m)
GI: Soft, Nontender and Nondistended
Musculoskeletal: No Clubbing and No Cyanosis; Negative No Edema (at most trace edema)
Neuro: Awake, Alert and Oriented
[2025-02-20 11:12] VITALS: BP 107/65
[2025-02-20] MEDS: LIPITOR 80 MG PO (11:12)
[2025-02-20] MEDS: SENSIPAR 60 MG PO (11:12)
[2025-02-20] MEDS: DEMADEX 100 MG PO (11:13)
[2025-02-20] MEDS: HEPARIN 5000 UNITS SC ×3 (11:13→23:34)
[2025-02-20] MEDS: RENVELA 800 MG PO ×3 (11:17→17:18)
[2025-02-20] MEDS: COREG 25 MG PO (11:17)
[2025-02-20] MEDS: NEPHROCAP 1 CAPSULE PO (11:18)
--- NOTE | 2025-02-20 14:22 | W.PN.NEPH.PH ---
Today's Communication / Plan
-
Dialysis tomorrow
Escalate UF as hemodynamically tolerated in setting of critical aortic stenosis
Assessment/Plan
-
IMP:
CHF Exacerbation from missed dialysis
Trop elevation
end-stage renal disease on hemodialysis Monday, [facility] since 1.5yr
Anemia ofCKD
hypertension
hyperlipidemia
Hyperphosphatemia
SHPTH
Critical aortic stenosis
Plan:
Patient will undergo dialysis tomorrow if still here
Patient has been accepted at the [facility] for evaluation for
Status post left heart cath today
LVEDP was significantly elevated greater than 30
We will push UF on dialysis as hemodynamically tolerated in setting of advanced aortic stenosis
Dialysis orders provide
BP soft, can hopefully down titrate meds, hold ARB
using CVC still, avoiding access AVF per pt request and it is deep too
Continue phos binder and Cinacalcet
need better compliance with HD and diet
d/w pt in detail
-
-
Date of Service: February 20, 2025
CC / HPI / ROS
-
Chief Complaint:
ESRD
History of Present Illness:
tolerated HD yesterday and wt is down
BP soft
echo shows critical
Review of Systems:
no cp or sob at rest
edema improving
Weight down
Labs
-
Labs:
WBC 5.2 10^3/uL (4.8-10.8) 02/19/25 08:27
RBC 3.10 10^6/uL (4.70-6.10) L 02/19/25 08:27
Hgb 9.6 g/dL (13.0-18.0) L 02/19/25 08:27
Hct 28.5 % (39.0-52.0) L 02/19/25 08:27
Plt Count 141 10^3/uL (130-400) 02/19/25 08:27
Sodium 138 mmol/L (135-145) 02/20/25 06:03
Potassium 3.7 mmol/L (3.5-5.1) 02/20/25 06:03
Chloride 101 mmol/L (98-107) 02/20/25 06:03
Carbon Dioxide 28 mmol/L (22-30) 02/20/25 06:03
BUN 29 mg/dl (9-20) H 02/20/25 06:03
Creatinine 6.4 mg/dL (0.7-1.3) H* 02/20/25 06:03
eGFR 9.35 02/20/25 06:03
Glucose 76 mg/dl (70-99) 02/20/25 06:03
Calcium 8.7 mg/dl (8.4-10.2) 02/20/25 06:03
Phosphorus 4.1 mg/dl (2.5-4.5) 02/18/25 07:17
Vpb-N-Gtzvllpceqe Pept > 14191 pg/ml 02/17/25 04:56
Albumin 4.2 g/dl (3.5-5.0) 02/19/25 08:27
Physical Exam
-
Vital Signs:
Vital Signs
Temp Pulse Resp BP Pulse Ox
98.3 F 72 18 107/65 96
02/20/25 11:12 02/20/25 11:12 02/20/25 11:12 02/20/25 11:12 02/20/25 11:12
Cardiovascular:: Regular rate and rhythm (4/6 BRADY)
Respiratory:: Bilateral: Rales
Lung Excursion:: Normal
Abdomen:: Nontender and Soft
Extremity Edema:: +2: Bilateral:
Beaulieu Catheter: No
--- NOTE | 2025-02-20 14:29 | CM ---
Met with patient and Mikaela
Per hospitalist patient will be a hospital to hospital transfer - [facility] (Dr. Rios)
accepted - await bed
PLAN: Transfer to [facility] when bed available
transportation forms on chart
[2025-02-20 14:54] VITALS: BP 108/60
--- NOTE | 2025-02-20 15:20 | W.PN.UPDATE ---
Update Note
Progress Note Update
Pt seen this morning with Dr. Padron. Discussed ongoing workup for AVR vs TAVR. Pt wishes to transfer his care to [facility] where he has had ongoing cardiac care with Dr. Jadyn Rios. He did express that he would prefer [facility] for TAVR as well as AVR. CT
surgery will sign off. Please call with questions/concerns.
[2025-02-20 19:00] VITALS: BP 102/59
[2025-02-20] MEDS: COREG PO (20:48)
[2025-02-20 23:00] VITALS: BP 105/60
[2025-02-21 03:00] VITALS: BP 109/63
[2025-02-21 06:00] VITALS: BMI 40.5
[2025-02-21 07:15] VITALS: BP 100/66
[2025-02-21 07:25] VITALS: BMI 40.5
[2025-02-21] MEDS: HEPARIN 5000 UNITS SC ×2 (07:57→16:55)
[2025-02-21] MEDS: RENVELA 800 MG PO ×3 (07:57→16:55)
[2025-02-21] MEDS: LIPITOR 80 MG PO (07:57)
[2025-02-21] MEDS: ProAmatine 10 MG PO (07:57)
[2025-02-21] MEDS: DEMADEX 100 MG PO (07:57)
[2025-02-21] MEDS: SENSIPAR 60 MG PO (07:58)
[2025-02-21] MEDS: NEPHROCAP 1 CAPSULE PO (07:58)
[2025-02-21] MEDS: COREG 25 MG PO (07:58)
[2025-02-21] MEDS: HEPARIN 500 UNITS IV ×2 (08:10→09:10)
[2025-02-21 08:20] LABS: Hemoglobin 9.2 g/dL (13.0-18.0)
[2025-02-21] MEDS: MANNITOL 25% 12.5 GRAMS IV ×2 (08:20→10:11)
[2025-02-21] MEDS: RETACRIT 6000 UNITS IV (08:20)
[2025-02-21 08:39] LABS: Carbon Dioxide 28 mmol/L (22-30); Chloride 97 mmol/L (98-107); Potassium 3.7 mmol/L (3.5-5.1); Sodium 137 mmol/L (135-145)
--- NOTE | 2025-02-21 10:37 | W.PN.NEPH.HD ---
Progress Note - Hemodialysis
-
Date of Service: February 21, 2025
Duration: 30 minutes and 3 hours
Potassium Bath: 2
Calcium Bath: 2.5
Opti-Dialyzer: 160
Ultrafiltration: Other (2.5 kg)
Blood Flow: 400
Dialysate Flow: 600
Heparin: 500 x 2
EPO: 2000
[2025-02-21 10:55] VITALS: BP 96/54
[2025-02-21] MEDS: HEPARIN 4300 UNITS INTRACATH (11:26)
--- NOTE | 2025-02-21 13:57 | W.PN.CD ---
Addendum entered and electronically signed by Abilio Tapia MD 02/21/25 14:44:
I saw and examined the patient.
The LEGAL OPERATIONS MANAGER's note was reviewed and I agree with the note.
Comment:
59M with ESRD on HD, hypertension, dyslipidemia, NIDDM and obesity admitted with acute on chronic HFpEF secondary to newly diagnosed critical aortic valve stenosis compounded by a missed HD session. He feels well today and is awaiting transfer to
[facility].
Physical exam notable for RRR, harsh systolic murmur, minimal LE edema, clear lungs.
For his critical , he would like to undergo valve replacement at [facility]. Awaiting transfer. Continue volume removal with HD.
Cardiology will sign off at this time. Please call with additional questions or concerns.
Original Note:
Today's Communication / Plan
-
Volume management with HD.
Awaiting transfer.
Impression / Plan
-
Impression/Plan: 59M with ESRD on HD, hypertension, dyslipidemia, NIDDM and obesity admitted with acute on chronic HFpEF secondary to newly diagnosed critical aortic valve stenosis compounded by a missed HD session.
#Critical aortic stenosis
-New diagnosis.
-TTE 02/18/25: LVEF 65-70%, dilated RV, mild MS (12/4 mmHg), critical (100/69 mmHg, ALEXANDRA 0.7).
-He would prefer to transfer to [facility], awaiting transfer
-Cardiac catheterization confirms critical , mild MS, no occlusive CAD, severely elevated filling pressures.
-TAVR CT completed. Needs dental evaluation (Periodontal lucencies are seen within the mandible, raising concern for periodontal abscess).
#HFpEF
-Acute on chronic.
-He does still make urine with torsemide, but volume is managed with hemodialysis.
-UF is delicate given his critical .
-Trend daily weight, I/O with HD.
-HF education.
#Abnormal troponin
-Nonischemic myocardial injury (NIMI) in the setting of acute heart failure, critical and ESRD.
-Chest pain-free, EKG stable.
-Cardiac catheterization shows non-occlusive CAD.
#ESRD on HD
-Chronic, stable.
-Still makes urine.
-Nephrology following.
-Goal is eventual transplant
#AV fistula
-Right upper extremity, chronic swelling with some discoloration in his fingers.
-He reports this is unchanged.
#Hypertension
-Chronic, stable.
-Managed by nephrology.
-Hold carvedilol and valsartan for the time being given relative hypotension.
#NIDDM
-Chronic, stable.
-Hgba1c pending.
-Management per primary service.
#Dyslipidemia
-Chronic.
-Continue atorvastatin.
#Incomplete right bundle branch block, present on prior EKG (10/14/2024)
Outpatient pullboat engineer: Dr. Rios, transitioning to Dr. Panda.
Subjective/Interval History:
BPs soft. Agents on hold.
DATA:
Transthoracic Echocardiogram, 02/18/2025:
CONCLUSIONS
Left ventricular ejection fraction is 65-70%. Normal regional wall motion.
Mildly enlarged right ventricular size. Normal right ventricular systolic
function.
Mild mitral stenosis; peak/mean 12/4 mmHg.
Critical aortic stenosis; peak/mean gradients 100/69 mmHg, calculated LAEXANDRA is
0.7 cm2.
No prior study available for comparison.
Cardiac Catheterization, 02/19/2025:
CONCLUSIONS:
1. Right dominant circulation with a 30% lesion in the proximal LAD and a 30-40% lesion in the proximal RCA.
2. Severely elevated filling pressures (LVEDP = 30 mmHg, PCWP = 40 mmHg at 137.4 kg) with evidence of diastolic dysfunction (A wave to 42 mmHg).
3. Critical aortic valve stenosis (mean gradient 73.9 mmHg, ALEXANDRA 0.64 cm�).
4. Mild mitral valve stenosis (mean gradient 10.4 mmHg, MVA = 2.57 cm�), with high gradient likely due to high cardiac output.
5. Elevated cardiac output likely due to AV fistula for hemodialysis (CO = 7.0 L/min, CI = 2.75 L/min/m�).
6. Severe postcapillary pulmonary hypertension (mean PA = 52 mmHg, PCWP = 40 mmHg, CO = 7.0 L/min, PVR = 1.71 De La Fuente units), WHO group 2.
Physical Exam
Vital Signs/Labs
Vital Signs
Temp Pulse Resp BP Pulse Ox
98.2 F 66 17 96/54 98
02/21/25 10:55 02/21/25 10:55 02/21/25 10:55 02/21/25 10:55 02/21/25 10:55
02/20/25 02/21/25 02/22/25
06:59 06:59 06:59
Actual Weight 135.397 kg 135.369 kg
02/21/25 07:28
02/21/25 07:28
PT 14.0 Sec (11.4-14.6) 02/19/25 09:20
INR 1.03 02/19/25 09:20
APTT 33.7 Sec (23.4-35.0) 02/19/25 09:20
02/17/25
04:56
Mxf-R-Wjarjdpsdla Pept > 21660
Physical Exam
Constitutional: No acute distress and Comfortable
EENT: Anicteric and Moist mucous membranes
Cardiovascular: Rhythm & rate is regular, Pedal edema is absent, Systolic murmur present and S1S2 is normal
Respiratory: Respiratory effort normal and Lungs clear to auscul.
GI: Soft, Distention absent, Flat, Non tender and Normal bowel sounds
Neuro/Psych: AO x 3
Other: Skin (warm and dry without edema)
Data Reviewed
-
Date of Service: February 21, 2025
X-Ray/CT/US/MRI/NUC/PET: Report Reviewed by me
Labs: Labs Reviewed by me
--- NOTE | 2025-02-21 14:17 | W.PN.HOSP.TC ---
Today's Communication/Plan
-
await bed availability
reviewed situation with pt's in room who had several questions
Assessment / Plan
Assessment / Plan
59 y.o w/ h/o CHF, HTN, ESRD on HD M/W/F presenting with SOB and hypoxia. Missed HD on monday prior to admission. Admission Xray with pulmonary edema. He had non-pitting edema in kanwal le and RUE on admission. BNP > 38844. Trop also elevated to
0.1. No chest pain. No ischemia on ECG. Suspect CHF exacerbation secondary to volume overload in conjunction of critical . He still makes urine on torsemide.
PLAN:
CHF Exacerbation - Suspect mostly secondary to volume overload from missed dialysis and large interdialytic weight gain associated with critical Trop elevated but can be seen with severe volume O/D. No CP or ischemia on ECG. He has no signs of
acute infection.
- oxygenating well on room SaO2 95-98%
- BP is normal, will hold off nitroglycerin for now
-hemodialysis 4/2
- fluid and salt restrictions
- echo: Left ventricular ejection fraction is 65-70%. Normal regional wall motion.
Mildly enlarged right ventricular size. Normal right ventricular systolic
function.
Mild mitral stenosis; peak/mean 12/4 mmHg.
Critical aortic stenosis; peak/mean gradients 100/69 mmHg, calculated ALEXANDRA is
0.7 cm2
- aspirin x 1, continue carvedilol 25 mg bid, statin
- cardiology consultation
wt 142-->138-->135.4kg
Family has decided they want valve surgery at [facility]. Await transfer. Dr. Mas spoke to Dr. Jadyn Rios who accepted patient. I spoke to transfer Center and completed transfer paper work. Once bed available will put transfer order in
For now, will plan dialysis in hospital as scheduled prior to transfer
Critical Aortic Stenosis noted on echo. ALEXANDRA is 0.7 cm2
cardio input appreciated. CT has been consulted. Await decision as to timing of TAVR. Discussed with pt various options of where he would want surgical intervention, as per pt, current plan is to have surgery at [facility], which is family
preference.
heart cath: 1. Right dominant circulation with a 30% lesion in the proximal LAD and a 30-40% lesion in the proximal RCA.
2. Severely elevated filling pressures (LVEDP = 30 mmHg, PCWP = 40 mmHg at 137.4 kg) with evidence of diastolic dysfunction (A wave to 42 mmHg).
3. Critical aortic valve stenosis (mean gradient 73.9 mmHg, ALEXANDRA 0.64 cm�).
4. Mild mitral valve stenosis (mean gradient 10.4 mmHg, MVA = 2.57 cm�), with high gradient likely due to high cardiac output.
5. Elevated cardiac output likely due to AV fistula for hemodialysis (CO = 7.0 L/min, CI = 2.75 L/min/m�).
6. Severe postcapillary pulmonary hypertension (mean PA = 52 mmHg, PCWP = 40 mmHg, CO = 7.0 L/min, PVR = 1.71 De La Fuente units), WHO group 2.
RECOMMENDATIONS:
1. Expectant management after cardiac catheterization via right common femoral approach.
2. Limited weight bearing for one week.
3. Consultation with CT surgery regarding optimal valve replacement strategy.
4. Continue aggressive diuresis/volume control with RN CARDIOVASCULAR ICU.
5. OMT/GDMT as hemodynamics will tolerate.
Trop elevation - suspect from CHF exacerbation and esrd but cannot rule out nstemi. No chest pain. No h/o CAD.
- asa 324 x 1
- diuresis and dialysis as above
- ntg prn cp
- cardiology consult
ESRD - Vol O/D from missed dialysis suspectec. K 3.9. bicarb 24
- nephrology consult for HD, has permcath in R IJ and a functional RUE AVF with good thrill and bruit
- has RUE swelling since fistula placement, outpatient u/s negative, plan to remove permcath by outpatient HD to help relieve swelling
- continue sevalamer cincalcet and dialyvite
- continue torsemide, Diovan on hold
DVT PPX - heparin sq
Code status - Full code
Anticipated Discharge: 24 - 48 hours
Subjective/Interval History
-
Date of Service: February 21, 2025
In good spirits
Objective Data
-
Labs:
Laboratory Results
02/21/25
07:28
Hgb 9.2 L
Hct 27.0 L
Sodium 137
Potassium 3.7
Chloride 97 L
Carbon Dioxide 28
Vital Signs:
Vital Signs
Temp Pulse Resp BP Pulse Ox
98.2 F 66 17 96/54 98
02/21/25 10:55 02/21/25 10:55 02/21/25 10:55 02/21/25 10:55 02/21/25 10:55
I&O
02/20/25 02/21/25 02/22/25
06:59 06:59 06:59
Intake Total 240 / 240 960 / 960
Output Total 200 / 200
Balance 40 / 40 960 / 960
Review of Systems
-
History Source: Patient and Coordinated Provider
Constitutional: Reports No Symptoms; Denies Fever
EENT: Reports No Symptoms Reported
Respiratory: Reports No Symptoms; Denies Trouble Breathing (none at rest)
Cardiac: Reports No Symptoms
Abdomen/GI: Reports No Symptoms
Genitourinary: Reports No Symptoms
Physical Exam
-
General: Well Developed, Well Nourished and No Apparent Distress
HEENT: Normocephalic, Atraumatic and Moist Mucous Membranes
Respiratory: Clear to Auscultation and Rales (atelectatic rales left base, clears after several deep breaths); Negative Wheezes or Rhonchi
Cardiac: Regular Rhythm, S1/S2 and Murmur (3/6AS m)
GI: Soft, Nontender and Nondistended
Musculoskeletal: No Clubbing, No Cyanosis and No Edema
Neuro: Awake, Alert and Oriented
[2025-02-21 15:06] VITALS: BP 94/59
[2025-02-21 19:25] VITALS: BP 94/51
[2025-02-21] MEDS: COREG PO (21:28)
[2025-02-21 22:46] VITALS: BP 120/70
--- NOTE | 2025-02-22 00:02 | PTCARENOTE ---
Pt picked up by [facility] - ALS transport for planned transfer to [facility]. Pt AAOx3, stable at time of transfer.
--- NOTE | 2025-02-22 07:23 | W.DS.TRANS ---
DC Summary - [facility]
-
Discharge Instructions:
Instructions: *PCP/Other New Product Trainer Heart Failure Instructions
Stand-Alone Forms:
Changes to Home Medications: No
Discharge Medications:
DC Medications w/original date entered in [employer]
atorvastatin 80 mg tablet (Lipitor) 80 mg PO DAILY High Cholesterol 09/10/24
carvedilol 25 mg tablet 25 mg PO BID Heart Disease/Condition 09/10/24
cinacalcet 60 mg tablet 60 mg PO DAILY Hormonal Agent 09/10/24
sevelamer HCl 800 mg tablet 800 mg PO MEALS Kidney Disease 09/10/24
torsemide 100 mg tablet 100 mg PO DAILY Fluid Retention/Swelling 09/10/24
valsartan 320 mg tablet 320 mg PO DAILY Blood Pressure 09/10/24
vitamin B complex-vitamin C-folic acid 0.8 mg tablet (Dialyvite 800) 1 tab PO DAILY Supplement 09/10/24
Home Medication Changes
Pending Results: No
== END 2025-02-22 00:17 | disposition short-term general hospital (02) | DRG 286 ==
LOC: 3 WEST ACU 06:41
PROVIDERS: Clinical Nurse Specialist Acute Care; Internal Medicine Cardiovascular Disease; Internal Medicine Nephrology; Specialist; ADMITTING PHYSICIAN Internal Medicine; ATTENDING PHYSICIAN Internal Medicine; CONSULT PHYSICIAN Thoracic Surgery (Cardiothoracic Vascular Surgery); EMERGENCY PHYSICIAN Student in an Organized Health Care Education/Training Program; FAMILY PHYSICIAN Internal Medicine; OTHER PHYSICIAN Internal Medicine
PROC: 5A1D70Z Performance of Urinary Filtration, Intermittent, Less than 6 Hours Per Day (ICD-10-PCS; 2025-02-17)
PROC: 4A023N6 Measurement of Cardiac Sampling and Pressure, Right Heart, Percutaneous Approach (ICD-10-PCS; 2025-02-19)
PROC: B2111ZZ Fluoroscopy of Multiple Coronary Arteries using Low Osmolar Contrast (ICD-10-PCS; 2025-02-19)
DX: I13.2 Hypertensive heart and chronic kidney disease with heart failure and with stage 5 chronic kidney disease, or end stage renal disease (principal); I50.33 Acute on chronic diastolic (congestive) heart failure; N18.6 End stage renal disease; Z68.41 Body mass index [BMI] 40.0-44.9, adult; N25.81 Secondary hyperparathyroidism of renal origin; E11.22 Type 2 diabetes mellitus with diabetic chronic kidney disease; Z99.2 Dependence on renal dialysis; I08.0 Rheumatic disorders of both mitral and aortic valves; I27.29 Other secondary pulmonary hypertension; D63.1 Anemia in chronic kidney disease; E78.00 Pure hypercholesterolemia, unspecified; Z87.01 Personal history of pneumonia (recurrent); I44.30 Unspecified atrioventricular block; R09.02 Hypoxemia; E66.9 Obesity, unspecified; E83.39 Other disorders of phosphorus metabolism; I25.9 Chronic ischemic heart disease, unspecified; Z79.899 Other long term (current) drug therapy; Z86.73 Personal history of transient ischemic attack (TIA), and cerebral infarction without residual deficits
CPT/HCPCS: 70355; 71046; 75572; 76937; 80048; 80051; 80053; 81003; 81015; 82248; 83036; 83880; 84100; 84484; 85014; 85018; 85025; 85027; 85610; 85730; 93005; 93306; 93460; 93880; 96374; 99152; 99153; 99291; C1769; C1894; G0257; P9047; Q5106; Q9967